=== PATIENT | female | born 1985 | race Caucasian/White ===

== ENCOUNTER 2018-11-09 14:59 | Emergency (ER) | payer OTHER ==
--- OUTSIDE RECORDS SUMMARY | 2018-11-09 15:08 | XMS REPORT | Continuity of Care Document ---
:1985 External Reference #:[id number] Author Name Inderjit Bush DO, MPH Address [address], [address] [place] [address] Care Team Providers Name Role Phone Shay Olivares J, DO Care Team Information Financial Manager Unavailable Jessica Johnson M.D. Primary Care Physician Unavailable Payers Date Identification Numbers Payment Provider Subscriber Policy Number: [id number] [facility] CLAYTON Pichardo PayID: [id number] [employer] [address] [place] [address] Family History Date Family Member(s) Observation Comments Father due to Unknown Causes () Mother 62 Children 3 Siblings None Social History Type Date Description Comments Sex Unknown Marital Status Lives With Spouse Lives With Children Occupation Unemployed Work Status Not Currently Working ETOH Use Denies alcohol use Tobacco Use Start: Unknown Patient is a current smoker, smokes every day Recreational Drug Use Denies Drug Use Smoking Status Reviewed: 10/23/18 Patient is a current smoker, smokes every day Allergies, Adverse Reactions, Alerts Active Allergies Reaction Severity Comments Date Morphine 03/22/2018 Medications Active Medications SIG Qnty Indications Ordering Provider Date Oxycodone HCL si by mouth 100tabs Inderjit Bush DO, 08/22/2018 5mg every 4 to 6 MPH Tablets hours as directed chronic pain patient Tizanidine HCL si by mouth 90tabs Inderjit Bush DO, 06/25/2018 4mg every 8 hours as MPH Tablets directed Gabapentin si by mouth 90tabs Inderjit Bush DO, 03/22/2018 600mg three times a day MPH Tablets as directed Doxepin HCL 4 by mouth every Unknown 25mg day before bed Capsules Hydroxyzine HCL si by mouth Unknown 25mg three times a day Tablets Propranolol HCL 1 by mouth twice Unknown 20mg daily Tablets History Medications Oxycodone HCL si by mouth 90tabs Inderjit Bush DO, 03/22/2018 - 5mg every 8 hours as MPH 08/22/2018 Tablets directed chronic pain patient Rizatriptan Benzoate 1-2 by mouth as Unknown - needed for 07/25/2018 10mg Tablets migraines Gabapentin si by mouth Unknown - 300mg three times a day 03/22/2018 Capsules as directed Vital Signs Date Vital Result Comment 10/23/2018 9:41am BP Systolic 128 mmHg BP Diastolic 76 mmHg Heart Rate 74 /min Respiratory Rate 20 /min Height 60 inches 5'0" Weight 190.00 lb Pain Level 6 Pain at this time. Pain Level With Medicine 5 on average with meds Pain Level Without Medicine 9 without meds BMI (Body Mass Index) 37.1 kg/m2 09/21/2018 9:48am BP Systolic 130 mmHg BP Diastolic 86 mmHg Heart Rate 84 /min Respiratory Rate 20 /min Height 60 inches 5'0" Weight 188.00 lb Pain Level 7 Pain at this time. Pain Level With Medicine 6 on average with meds Pain Level Without Medicine 9 without meds Pain Level After Procedure 2 BP Systolic Recheck 128 mmHg Pulse: 80 BP Diastolic Recheck 78 mmHg Pulse: 80 BMI (Body Mass Index) 36.7 kg/m2 08/22/2018 9:46am BP Systolic 132 mmHg BP Diastolic 84 mmHg Heart Rate 86 /min Respiratory Rate 20 /min Height 60 inches 5'0" Weight 186.00 lb Pain Level 7 Pain at this time. Pain Level With Medicine 6 on average with meds Pain Level Without Medicine 9 01/31 without meds BMI (Body Mass Index) 36.3 kg/m2 07/25/2018 9:36am BP Systolic 126 mmHg BP Diastolic 70 mmHg Heart Rate 74 /min Respiratory Rate 20 /min Height 60 inches 5'0" Weight 170.00 lb Pain Level 5 Pain at this time. Pain Level With Medicine 4 on average with meds Pain Level Without Medicine 9 01/01 with no medication Pain Level After Procedure 3 BP Systolic Recheck 130 mmHg Pulse: 88 BP Diastolic Recheck 82 mmHg Pulse: 88 BMI (Body Mass Index) 33.2 kg/m2 07/19/2018 10:15am BP Systolic 148 mmHg BP Diastolic 86 mmHg Heart Rate 88 /min Respiratory Rate 20 /min Height 60 inches 5'0" Weight 170.00 lb Pain Level 9 Pain at this time. Pain Level With Medicine 8 on average with meds Pain Level Without Medicine 10 01/31 without meds Pain Level After Procedure 2 BP Systolic Recheck 136 mmHg Pulse: 80 BP Diastolic Recheck 84 mmHg Pulse: 80 BMI (Body Mass Index) 33.2 kg/m2 06/25/2018 9:44am BP Systolic 128 mmHg BP Diastolic 78 mmHg Heart Rate 74 /min Respiratory Rate 20 /min Height 60 inches 5'0" Weight 171.00 lb Pain Level 6 Pain at this time. Pain Level With Medicine 5 on average with meds Pain Level Without Medicine 10 01/31 without meds BMI (Body Mass Index) 33.4 kg/m2 05/25/2018 10:22am BP Systolic 146 mmHg BP Diastolic 76 mmHg Heart Rate 78 /min Respiratory Rate 20 /min Height 60 inches 5'0" Weight 171.00 lb Pain Level 7 Pain at this time. Pain Level With Medicine 6 on average with meds Pain Level Without Medicine 10 01/31 without meds Pain Level After Procedure 5 BP Systolic Recheck 140 mmHg Pulse: 88 BP Diastolic Recheck 82 mmHg Pulse: 88 BMI (Body Mass Index) 33.4 kg/m2 05/03/2018 12:20pm BP Systolic 124 mmHg BP Diastolic 78 mmHg Heart Rate 74 /min Respiratory Rate 20 /min Height 60 inches 5'0" Weight 157.00 lb Pain Level 7 Pain at this time. Pain Level With Medicine 6 on average with meds Pain Level Without Medicine 10 01/31 without meds BMI (Body Mass Index) 30.7 kg/m2 04/05/2018 2:35pm BP Systolic 128 mmHg BP Diastolic 84 mmHg Heart Rate 80 /min Respiratory Rate 20 /min Height 60 inches 5'0" Weight 157.00 lb Pain Level 8 Pain at this time. Pain Level With Medicine 8 on average with meds Pain Level Without Medicine 10 01/31 without meds Pain Level After Procedure 6 BP Systolic Recheck 132 mmHg Pulse: 84 BP Diastolic Recheck 80 mmHg Pulse: 84 BMI (Body Mass Index) 30.7 kg/m2 03/22/2018 2:20pm BP Systolic 122 mmHg BP Diastolic 76 mmHg Heart Rate 74 /min Respiratory Rate 18 /min Height 60 inches 5'0" Weight 156.00 lb Pain Level 9 Pain at this time. Pain Level Without Medicine 10 01/31 without meds BMI (Body Mass Index) 30.5 kg/m2 Procedures Date Code Description Status 09/21/2018 57214 Therapeutic, Prophylactic Or Diagnostic Injection Subq/Im Completed 09/21/2018 32808 Injection For Nerve Block, Other Peripheral Nerve Or Completed Branch 09/21/201874304 Injection, Single Or Mutiple Trigger Points One Or Two Completed Muscles 09/21/201838925 Injection, Tendon Origin/Insertion Completed 09/21/201811886 Injection, Tendon Origin/Insertion Completed 09/21/201809721 Inject Tendon/Ligament Completed 09/21/201806177 Inject Tendon/Ligament Completed 09/21/201836860 Inject Tendon/Ligament Completed 09/21/201882017 Inject Tendon/Ligament Completed 08/22/2018 76021 Therapeutic, Prophylactic Or Diagnostic Injection Subq/Im Completed 07/25/201846714 Arthrocentesis/Aspiration/Inj Of Major Joint Or Bursa W/ Completed Ultra 07/25/2018 91597 Test Autonomic Nervous System, Cardiovagal Innervation Completed 07/25/2018 58283 Test Autonomic Nervous System, Sudomotor Completed 07/19/2018 71363 Injection For Nerve Block, Greater Occipital Nerve Completed 07/19/201801032 Injection, Single Or Mutiple Trigger Points One Or Two Completed Muscles 07/19/2018 71292 Inject Tendon/Ligament Completed 07/19/2018 66621 Inject Tendon/Ligament Completed 07/19/2018 70808 Inject Tendon/Ligament Completed 07/19/2018 22972 Inject Tendon/Ligament Completed 06/25/2018 57698 Therapeutic, Prophylactic Or Diagnostic Injection Subq/Im Completed 04/05/2018 39014 Arthrocentesis/Aspiration/Inj Of Major Joint Or Bursa W/ Completed Ultra Encounters Type Date Location Provider Dx Diagnosis Office Visit 09/21/2018 Main Office as Of Inderjit Bush DO, G89.21 Chronic pain due 9:45a 14 MPH to trauma M53.3 Sacrococcygeal disorders, not elsewhere classified M54.17 Radiculopathy, lumbosacral region M65.88 Other synovitis and tenosynovitis, other site M46.06 Spinal enthesopathy, lumbar region M79.18 Myalgia, other site R53.83 Other fatigue 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 Office Visit 08/22/2018 10:15a Main Office as Inderjit Bush G89.21 Chronic pain due Of 05/25/13 DO, MPH to trauma M53.3 Sacrococcygeal disorders, not elsewhere classified M25.551 Pain in right hip G90.3 Multi-system degeneration of the autonomic nervous system R53.83 Other fatigue 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 Office Visit 07/25/2018 10:00a Main Office as Inderjit Bush G89.21 Chronic pain due Of 05/25/13 DO, MPH to trauma M53.3 Sacrococcygeal disorders, not elsewhere classified M25.551 Pain in right hip 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 G90.3 Multi-system degeneration of the autonomic nervous system Office Visit 07/19/2018 10:15a Main Office as Inderjit Bush G89.21 Chronic pain due Of 05/25/13 DO, MPH to trauma M53.3 Sacrococcygeal disorders, not elsewhere classified M65.88 Other synovitis and tenosynovitis, other site M79.12 Myalgia of auxiliary muscles, head and neck M54.81 Occipital neuralgia Office Visit 06/25/2018 10:15a Main Office as Inderjit Bush G89.21 Chronic pain due Of 05/25/13 DO, MPH to trauma M51.26 Other intervertebral disc displacement, lumbar region M53.3 Sacrococcygeal disorders, not elsewhere classified M54.5 Low back pain 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 R53.83 Other fatigue Office Visit 05/25/2018 10:00a Main Office as Inderjit Bush G89.21 Chronic pain due Of 05/25/13 DO, MPH to trauma M51.26 Other intervertebral disc displacement, lumbar region M25.551 Pain in right hip M53.3 Sacrococcygeal disorders, not elsewhere classified 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 Office Visit 05/03/2018 12:15p Main Office as Inderjit Bush G89.21 Chronic pain due Of 05/25/13 DO, MPH to trauma M51.26 Other intervertebral disc displacement, lumbar region M25.551 Pain in right hip M53.3 Sacrococcygeal disorders, not elsewhere classified 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 Office Visit 04/05/2018 2:45p Main Office as Inderjit Bush G89.21 Chronic pain due Of 05/25/13 DO, MPH to trauma M51.26 Other intervertebral disc displacement, lumbar region M25.551 Pain in right hip M53.3 Sacrococcygeal disorders, not elsewhere classified 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 Office Visit 03/22/2018 1:45p Main Office as Inderjit Bush G89.21 Chronic pain due Of 05/25/13 DO, MPH to trauma M51.26 Other intervertebral disc displacement, lumbar region M54.17 Radiculopathy, lumbosacral region M43.16 Spondylolisthesis, lumbar region M62.830 Muscle spasm of back G43.909 Migraine, unsp, not intractable, without status migrainosus M25.551 Pain in right hip M25.552 Pain in left hip F17.210 Nicotine dependence, cigarettes, uncomplicated Z13.89 Encounter for screening for other disorder Z71.89 Other specified counseling Z79.891 FDC (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 Z71.3 Dietary counseling and surveillance Plan of Treatment Future Appointment(s):11/03/2018 9:45 am - Inderjit Bush DO MPH at Main Office as Of 05/25/1406 9:45 am - Inderjit Bush DO MPH at Main Office as Of 05/25/1406 - Inderjit Bush DO, MPHG89.21 Chronic pain due to traumaComments:Chronic. Symptoms and complaints discussed and reviewed today. No significant changes in physical findings. Continue current medical pain management.M54.17 Radiculopathy, lumbosacral regionComments:Chronic. Symptoms and complaints discussed and reviewed today. No changes in physical findings; patient is stable on current medical therapy.M53.3 Sacrococcygeal disorders, not elsewhere classifiedComments:Chronic. Symptoms and complaints discussed and reviewed today. Notable sacral somatic dysfunctions warranting OMT. Patient is stable and comfortable with current medical therapy.M65.88 Other synovitis and tenosynovitis, other siteComments:Chronic. Symptoms and complaints discussed and reviewed today. Physical findings reviewed and warrant intervention. Continue current medical pain management.M79.18 Myalgia, other siteComments: Chronic. Symptoms and complaints discussed and reviewed today.No changes in physical findings. Patient is stable and comfortable when current medical therapy is rendered.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New Labs: Urine Drug Screen, Ordered: 10/23/18Comments:Urine drug screen sample taken. Rapid Point of Care Cup was reviewed in office with patient. Will send out UDT Rapid to Quantitative lab for confirmation testing. Urine Drug Testing (UDT) was done today to monitor opiate use and to monitor possible use of illicit substances. I will discuss the results at the next appointment from the Quantitative lab.The following tests were ordered:6 AM, AMPH, OMEGA, RAFFI, BUP, CARIS, COCM, COT, ETG, FENT, MCSHSG, OPI, OXY, PCP, TAPEN, XTSY, ZOLP. A urine drug test (UDT) was ordered for this patient and collected on site today. Creatinine has been ordered as well for specimen validity, not for kidney function. Preliminary UDT results are not final and should not be used to determine patient care or plan of treatment. Initially a qualitative immunoassay screen will be done. Any inconsistent or positive findings will be further tested with a more comprehensive quantitative confirmation LCMS study. It is part of the treatment process of prescribing controlled substances and is considered standard of care.R53.83 Other fatigueComments:Symptoms and complaints discussed and reviewed today. No significant changes in physical findings. Continue current medical pain management. B12 injection administered after patient evaluated. 1ml IM for fatigue. (See Consent for injection-B12 document for lot number and expiration date.)AllComments:Continue current medical pain management; injection therapy, osteopathic manipulation, PT / modalities, and consults as needed to manage chronic pain.Non - opioid pain management discussed and optionsdiscussed.Side effects discussed; anticipatory guidance given. Patient clearly understand and agree with all medical treatments and suggestions. All medicines prescribed are adequate and appropriate for this patient's complaint of pain, medical history, physical, and personal goals.Goals of Treatment are to provide adequate and appropriate multidisciplinary medical pain management to increase/ maintain patient's quality of life and functionality while maintaining satisfactory side effect profile andminimizing senior living end-organ damage. Importance of regular nutrition throughout the day discussed.Activity as toleratedContinue with PCP
--- OUTSIDE RECORDS SUMMARY | 2018-11-09 15:08 | XMS REPORT | Continuity of Care Document ---
:1985 External Reference #:[id number] Author Name Inderjit Bush DO, MPH Address [facility] [place] [facility], [address] [place] [address] Care Team Providers Name Role Phone Shay Olivares J, DO Care Team Information Front Office Attendant Unavailable Jessica Johnson M.D. Primary Care Physician Unavailable Payers Date Identification Numbers Payment Provider Subscriber Policy Number: [id number] [facility] Coby Pichardo PayID: [id number] [employer] Claims Dept [address] [place] [address] Problems Active Problems Provider Date Solitary sacroiliitis Inderjit Bush DO, MPH Onset: 11/03/2018 Pain in left sacroiliac joint Inderjit Bush DO, MPH Onset: 11/03/2018 Somatic dysfunction of thoracic region Inderjit Bush DO, MPH Onset: 2018 Pain in thoracic spine Inderjit Bush DO, MPH Onset: 11/03/2018 Somatic dysfunction of lumbar region Inderjit Bush DO, MPH Onset: 11/03/2018 Low back pain Inderjit Bush DO, MPH Onset: 11/03/2018 Somatic dysfunction of sacroiliac joint Inderjit Bush DO, MPH Onset: 2018 Chronic pain due to injury Inderjit Bush DO, MPH Onset: 11/03/2018 Family History Date Family Member(s) Observation Comments [...] Use Denies Drug Use Smoking Status Reviewed: 11/03/18 Patient is a current smoker, smokes every [...] directed Vital Signs Date Vital Result Comment 11/03/2018 10:11am BP Systolic 128 mmHg BP Diastolic 84 mmHg Heart Rate 86 /min Respiratory Rate 20 /min Height 60 inches 5'0" Weight 192.00 lb Pain Level 7 Pain at this time. Pain Level With Medicine 7 on average with meds Pain Level Without Medicine 9 without meds Pain Level After Procedure 4 BP Systolic Recheck 132 mmHg Pulse: 88 BP Diastolic Recheck 86 mmHg Pulse: 88 BMI (Body Mass Index) 37.5 kg/m2 10/23/2018 9:41am BP Systolic 128 mmHg BP [...] 30.5 kg/m2 Procedures Date Code Description Status 10/23/2018 23078 Therapeutic, Prophylactic Or Diagnostic Injection Subq/Im Completed 09/21/2018 19506 Therapeutic, Prophylactic Or Diagnostic Injection Subq/Im Completed 09/21/2018 40016 Injection For Nerve Block, Other Peripheral Nerve Or Completed Branch 09/21/201803510 Injection, Single Or Mutiple Trigger Points One Or Two Completed Muscles 09/21/2018 Injection, Tendon Origin/Insertion Completed 09/21/201854184 Injection, Tendon Origin/Insertion Completed 09/21/201805986 Inject Tendon/Ligament Completed 09/21/201822543 Inject Tendon/Ligament Completed 09/21/201871723 Inject Tendon/Ligament Completed 09/21/201819885 Inject Tendon/Ligament Completed 08/22/2018 12168 Therapeutic, Prophylactic Or Diagnostic Injection Subq/Im Completed 07/25/201890599 Arthrocentesis/Aspiration/Inj Of Major Joint Or Bursa W/ Completed Ultra 07/25/2018 76098 Test Autonomic Nervous System, Cardiovagal Innervation Completed 07/25/2018 67116 Test Autonomic Nervous System, Sudomotor Completed 07/19/2018 71158 Injection For Nerve Block, Greater Occipital Nerve Completed 07/19/201844275 Injection, Single Or Mutiple Trigger Points One Or Two Completed Muscles 07/19/201896198 Inject Tendon/Ligament Completed 07/19/201841095 Inject Tendon/Ligament Completed 07/19/201885104 Inject Tendon/Ligament Completed 07/19/201867938 Inject Tendon/Ligament Completed 06/25/2018 52320 Therapeutic, Prophylactic Or Diagnostic Injection Subq/Im Completed 04/05/201845932 Arthrocentesis/Aspiration/Inj Of Major Joint Or Bursa W/ Completed Ultra Encounters Type Date Location Provider Dx Diagnosis Office Visit 10/23/2018 Main Office as Of Inderjit Bush DO, G89.21 Chronic pain due 9:45a 05/25/13 MPH to trauma M54.17 Radiculopathy, lumbosacral region M53.3 Sacrococcygeal disorders, not elsewhere classified M65.88 Other synovitis and tenosynovitis, other site M79.18 Myalgia, other site Z79.891 custodial (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 R53.83 Other fatigue Office Visit 09/21/2018 9:45a Main Office as Inderjit Bush G89.21 Chronic pain due Of 05/25/13 DO, MPH to trauma M53.3 Sacrococcygeal disorders, not elsewhere classified M54.17 Radiculopathy, lumbosacral region M65.88 Other synovitis and tenosynovitis, other site M46.06 Spinal enthesopathy, lumbar region M79.18 Myalgia, other site R53.83 Other fatigue Z79.891 custodial (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 Office Visit 08/22/2018 10:15a Main Office as Inderjit Bush G89.21 Chronic pain due Of 05/25/13 DO, MPH to trauma M53.3 Sacrococcygeal disorders, not elsewhere classified M25.551 Pain in right hip G90.3 Multi-system degeneration of the autonomic nervous system R53.83 Other fatigue 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 Office Visit 07/25/2018 10:00a Main Office as Inderjit Bush G89.21 Chronic pain due Of 05/25/13 DO, MPH to trauma M53.3 Sacrococcygeal disorders, not elsewhere classified M25.551 Pain in right hip Z79.891 custodial (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 G90.3 Multi-system [...] elsewhere classified M54.5 Low back pain Z79.891 custodial (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 R53.83 Other fatigue Office Visit 05/25/2018 10:00a Main Office as Inderjit Bush, G89.21 Chronic pain due Of 05/25/13 DO, MPH to trauma M51.26 Other intervertebral disc displacement, lumbar region M25.551 Pain in right hip M53.3 Sacrococcygeal disorders, not elsewhere classified 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 Office Visit 05/03/2018 12:15p Main Office as Inderjit Bush G89.21 Chronic pain due Of 2 DO, MPH to trauma M51.26 Other intervertebral disc displacement, lumbar region M25.551 Pain in right hip M53.3 Sacrococcygeal disorders, not elsewhere classified 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 Office Visit 04/05/2018 2:45p Main Office as Inderjit Bush G89.21 Chronic pain due Of 2/1/14 DO, MPH to trauma M51.26 Other intervertebral disc displacement, lumbar region M25.551 Pain in right hip M53.3 Sacrococcygeal disorders, not elsewhere classified Z79.891 custodial (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 Office Visit 03/22/2018 1:45p Main Office as Inderjit Bush, G89.21 Chronic pain due Of 05/25/13 DO, [...] other disorder Z71.89 Other specified counseling Z79.891 custodial (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 Z71.3 Dietary counseling and surveillance Plan of Treatment Future Appointment(s):11/10/2018 9:30 am - Inderjit Bush DO, MPH at Main Office as Of 05/25/1406 9:45 am - Inderjit Bush DO, MPH at Main Office as Of 05/25/1406 - Inderjit Bush DO, MPHG89.21 Chronic pain due to traumaComments:Chronic. Symptoms and complaints discussed and reviewed today. No significant changes in physical findings. Continue current medical pain management.M53.3 Sacrococcygeal disorders, not elsewhere classifiedComments: Chronic. Symptoms and complaints discussed and reviewed today. Notable sacral somatic dysfunctions warranting OMT. Patient is stable and comfortable with current medical therapy.M99.04 Segmental and somatic dysfunction of sacral regionComments:Chronic. Symptoms and complaints discussed and reviewed today. Sacral somatic dysfunctions noted warranting OMT. Continue current medical pain management and OMT. Sacral Torsion. OMT performed after evaluation. HVLA.M46.1 Sacroiliitis, not elsewhere classifiedComments:Symptoms and complaints discussed and reviewed today. Continue current medical pain management. Physical findings warrant injection therapy.Injection therapy to left SI joint performed today. Injection therapy performed today under musculoskeletal ultrasound for demarcation of pertinent structures and needle guidance for injection - see procedure sheet.M99.05 Segmental and somatic dysfunction of pelvic regionComments:Chronic. Symptoms and complaints discussed and reviewed today. Pelvic somatic dysfunctions noted warranting OMT. Continue current medical pain management and OMT. Pelvic Shear. OMT performed. MFR. HVLA.AllComments:Continue current medical pain management; injection therapy, osteopathic [...] while maintaining satisfactory side effect profile andminimizing nursing home end-organ damage. Importance of regular nutrition throughout the day discussed.Activity as toleratedContinue with PCP
[2018-11-09 15:58] VITALS: BP 122/83
--- NOTE | 2018-11-09 18:46 | UC ---
Complaint Female HPI - HPI Summary HPI Summary: 3 DAYS OF LEFT PELVIC PAIN. FEELS BETTER WITH HEAT. PATIENT IS 32 DAYS LATE FOR HER MENSTRUAL CYCLE BUT REPORTS THAT HER MENSES ARE EXTREMELY IRREGULAR AT BASELINE. SHE HAS GONE UP TO 90 DAYS WITHOUT HAVING A PERIOD. IS FOLLOWED BY [employer] UP WORKER. IS HAVING UNPROTECTED SEX WITH HER . NO FEVER. NO VAGINAL DISCHARGE. - History Of Current Complaint Chief Complaint: UCAbdominalPain Stated Complaint: PELVIC PAIN Time Seen by Provider: 11/09/18 16:39 Hx Obtained From: Patient Hx Last Menstrual Period: [id number] Onset/Duration: Gradual Onset, Lasting Days, Still Present Timing: Constant, Lasting Days Severity Initially: Mild Severity Currently: Mild Pain Intensity: 1 Pain Scale Used: 0-10 Numeric Character: Sharp, Cramping Aggravating Factor(s): Nothing Alleviating Factor(s): Nothing Associated Signs And Symptoms: Negative: Fever, Back Pain, Vaginal Bleeding/ Discharge, Vaginal Discharge, Nausea - Allergies/Home Medications Allergies/Adverse Reactions: Allergies Allergy/AdvReac Type Severity Reaction Status Date / Time morphine Allergy See Comment Verified 11/09/18 15:59 [email or web address] [From Chantix] Allergy Nausea Verified 11/09/18 15:59 Home Medications: Home Medications Albuterol HFA INHALER* [Ventolin HFA Inhaler*] 2 puff INH Q4H PRN 11/09/18 [ History Confirmed 11/09/18] Cetirizine* [ZyrTEC 10 MG TAB*] 10 mg PO DAILY 11/09/18 [History Confirmed 11/09] Fluticasone/Vilanterol MDI(NF) [Breo Ellipta MDI 100/25(NF)] 1 puff INH DAILY [History Confirmed 11/09/18] Gabapentin CAP(*) [Neurontin 300 CAP(*)] 600 mg PO TID 11/09/18 [History Confirmed 11/09/18] Propranolol TAB* [Inderal TAB*] 10 mg PO BID 11/09/18 [History Confirmed ] Tiotropium CAP.INH* [Spiriva CAP.INH*] 1 cap.inh INH BID 11/09/18 [History Confirmed 11/09/18] Tizanidine HCl [Zanaflex] 4 mg PO TID 11/09/18 [History Confirmed 11/09/18] PMH/Surg Hx/FS Hx/Imm Hx Psychological History: Anxiety, Depression, Bipolar Disorder, Post Traumatic Stress Disorder - Surgical History Surgical History: Yes Surgery Procedure, Year, and Place: Elbow reconstruction, 2000. lydia, 2008. c -sec X3 - Family History Known Family History: Positive: Non-Contributory - Social History Alcohol Use: Rare Substance Use Type: None Smoking Status (MU): Heavy Every Day Tobacco Smoker Review of Systems All Other Systems Reviewed And Are Negative: Yes Constitutional: Positive: Negative Skin: Positive: Negative Respiratory: Positive: Negative Cardiovascular: Positive: Negative Gastrointestinal: Positive: Negative Genitourinary: Positive: Other - LEFT PELVIC PAIN. Negative: Dysuria, Frequency , Urgency, Vaginal/Penile Discharge Physical Exam Triage Information Reviewed: Yes Appearance: Well-Appearing, No Pain Distress, Well-Nourished Vital Signs: Initial Vital Signs Temp 97.7 F 11/09/18 15:46 Pulse 77 11/09/18 15:46 Resp 16 11/09/18 15:46 BP 122/83 11/09/18 15:46 Pulse Ox 100 11/09/18 15:46 Laboratory Tests 11/09/18 11/09/18 18:01 18:04 POC Urine Color Yellow POC Urine Clarity Clear POC Urine pH 6.0 POC Ur Specif [place] 1.010 POC Urine Protein Negative POC Ur Glucose (UA) Negative POC Urine Ketones Negative POC Urine Blood Negative POC Urine Nitrite Negative POC Urine Bilirubin Negative POC Urine Urobilinogen 0.2 POC U Leukocyte Esteras Negative POC Ur Test Negative Vital Signs Reviewed: Yes Eyes: Positive: Conjunctiva Clear ENT: Positive: Hearing grossly normal Neck: Positive: Supple, Nontender, No Lymphadenopathy Respiratory: Positive: No respiratory distress, No accessory muscle use Cardiovascular: Positive: Pulses Normal Abdomen Description: Positive: Soft, Other: - LLQ TENDERNESS. NO RIGIDITY OR REBOUND. Negative: CVA Tenderness (R), CVA Tenderness (L), Distended, Guarding Bowel Sounds: Positive: Present Musculoskeletal: Positive: No Edema Neurological: Positive: Alert Psychological: Positive: Age Appropriate Behavior Skin: Negative: Rashes Diagnostics - Radiology PELVIC/TRANSVAGINAL US Radiology Interpretation Completed By: Radiologist Summary of Radiographic Findings: 1. Vascular flow documented at both normal size ovaries. 2. 1.6 cm maximum dimension probable partially involuted hemorrhagic cyst of the LEFT ovary. Very low suspicion finding given small size. 3. Negative for free pelvic fluid. Complaint Female Dx - Differential Dx/Diagnosis Provider Diagnosis: Hemorrhagic cyst of left ovary Discharge - Sign-Out/Discharge Documenting (check all that apply): Patient Departure All imaging exams completed and their final reports reviewed: Yes - Discharge Plan Condition: Stable Disposition: HOME Patient Education Materials: Ovarian Cyst (ED) Referrals: Jessica Johnson MD [Primary Care Provider] - If Needed Additional Instructions: ULTRASOUND TODAY SHOWED A HEMORRHAGIC CYST IN THE LEFT OVARY. THIS IS LIKELY WHAT IS CAUSING HER DISCOMFORT. OTC MEDICATIONS NEEDED. HEAT MAY HELP. FOLLOW-UP WITH YOUR [employer] UP WORKER IF NEEDED. URINE WAS NEGATIVE FOR INFECTION AND . - Billing Disposition and Condition Condition: STABLE Disposition: Home
== END 2018-11-09 18:57 | disposition home or self-care (01) ==
LOC: UCEAST 14:59
DX: N83.202 Unspecified ovarian cyst, left side (principal); F41.9 Anxiety disorder, unspecified; F32.9 Major depressive disorder, single episode, unspecified; F31.9 Bipolar disorder, unspecified; F17.210 Nicotine dependence, cigarettes, uncomplicated; Z88.5 Allergy status to narcotic agent
CPT/HCPCS: 76830; 76856; 81003; 84702; 99211; G0463

== ENCOUNTER 2019-03-31 12:09 | Emergency (ER) | payer OTHER ==
--- OUTSIDE RECORDS SUMMARY | 2019-03-31 12:14 | XMS REPORT | Continuity of Care Document ---
:1985 External Reference #:[id number] Author Name Inderjit Bush DO, MPH Address [address] [place] [address], [address] [place] [address] Care Team Providers Name Role Phone Shay Olivares J, DO - Internal Medicine Care Team Information Director Clinical Information Services [phone] Jessica Johnson M.D. - Internal Care Team Information Director Clinical Information Services Medicine Problems Active Problems Provider Date Myalgia, other site Inderjit Bush DO, MPH Onset: 03/02/2019 Synovitis and tenosynovitis Inderjit Bush DO, MPH Onset: 03/02/2019 Somatic dysfunction of pelvic region Inderjit Bush DO, MPH Onset: 03/02/2019 Arthralgia of the pelvic region and thigh Inderjit Bush DO, MPH Onset: 2018 Solitary sacroiliitis Inderjit Bush DO, MPH Onset: [...] injury Inderjit Bush DO, MPH Onset: 11/03/2018 Social History Type Date Description Comments Sex Unknown ETOH Use Denies alcohol use Tobacco Use Start: Unknown Patient is a current smoker, smokes every day Recreational Drug Use Denies Drug Use Smoking Status Reviewed: 03/02/19 Patient is a current smoker, smokes every day Allergies, Adverse Reactions, Alerts Active Allergies Reaction Severity Comments Date Morphine 03/22/2018 Medications Active Medications SIG Qnty Indications Ordering Date Provider Oxycodone HCL si by mouth 100tabs Inderjit Bush, 08/22/2018 5mg Tablets every 4 to 6 DO, MPH hours as directed chronic pain patient Tizanidine HCL si by mouth 90tabs Inderjit Bush, 06/25/2018 4mg every 8 hours as DO, MPH Tablets directed Gabapentin si by mouth 90tabs Inderjit Bush, 03/22/2018 600mg Tablets three times a DO, MPH day as directed Doxepin HCL 4 by mouth every Unknown 25mg Capsules day before bed Hydroxyzine HCL si by mouth Unknown 25mg three times a Tablets day Propranolol HCL 1 by mouth Unknown 20mg twice daily Tablets Levothyroxine Sodium 1 by mouth every Unknown day 25mcg Tablets Aimovig Unknown 70mg/ml Solution Auto-Inject Zyrtec Allergy Unknown 10mg Tablets Loratadine si by mouth Unknown 10mg Tablets every morning Albuterol Inhalation Unknown 90mcg/Dose Aerosol Spiriva Handihaler Unknown 18mcg Capsules Breo Ellipta Unknown 100-25mcg/Inh Aerosol Immunizations Description No Information Available Vital Signs Date Vital Result Comment 03/02/2019 10:08am BP Systolic 128 mmHg BP Diastolic 80 mmHg Heart Rate 74 /min Respiratory Rate 20 /min Height 60 inches 5'0" Weight 192.00 lb Pain Level 5 Pain at this time. Pain Level With Medicine 5 on average with meds Pain Level Without Medicine 9 without meds Pain Level After Procedure 3 BP Systolic Recheck 126 mmHg Pulse: 74 BP Diastolic Recheck 72 mmHg Pulse: 74 BMI (Body Mass Index) 37.5 kg/m2 02/21/2019 9:30am BP Systolic 128 mmHg BP Diastolic 84 mmHg Heart Rate 86 /min Respiratory Rate 20 /min Height 60 inches 5'0" Weight 192.00 lb Pain Level 6 Pain at this time. Pain Level With Medicine 5 on average with meds Pain Level Without Medicine 9 without meds BMI (Body Mass Index) 37.5 kg/m2 Results Description No Information Available Procedures Date Code Description Status 03/02/2019 06951 Omt 3-4 Body Regions Completed 03/02/2019 Arthrocentesis/Aspiration/Inj Of Major Joint Or Bursa W/ Completed Ultra 03/02/2019 Arthrocentesis/Aspiration/Inj Of Major Joint Or Bursa W/ Completed Ultra 03/02/2019 Injection, Single Or Mutiple Trigger Points One Or Two Completed Muscles 03/02/201908792 Inject Tendon/Ligament Completed 03/02/201909024 Inject Tendon/Ligament Completed 02/21/2019 53337 Therapeutic, Prophylactic Or Diagnostic Injection Subq/Im Completed 01/01/201942403 Inject Tendon/Ligament Completed 01/01/201989281 Inject Tendon/Ligament Completed 01/01/201937084 Inject Tendon/Ligament Completed 01/01/201964522 Inject Tendon/Ligament Completed 01/01/201929994 Injection, Tendon Origin/Insertion Completed 01/01/201955200 Injection, Tendon Origin/Insertion Completed 01/01/201965318 Injection, Single Or Mutiple Trigger Points One Or Two Completed Muscles 01/01/2019 92279 Injection For Nerve Block, Other Peripheral Nerve Or Completed Branch 01/01/2019 63172 Omt 5-6 Body Regions Completed 12/20/2018 94676 Therapeutic, Prophylactic Or Diagnostic Injection Subq/Im Completed 11/21/2018 00655 Therapeutic, Prophylactic Or Diagnostic Injection Subq/Im Completed 11/03/2018 97549 Omt 1-2 Body Regions Completed 11/03/201875883 Arthrocentesis/Aspiration/Inj Of Major Joint Or Bursa W/ Completed Ultra 10/23/2018 97924 Therapeutic, Prophylactic Or Diagnostic Injection Subq/Im Completed 09/21/2018 21915 Therapeutic, Prophylactic Or Diagnostic Injection Subq/Im Completed 09/21/2018 66717 Injection For Nerve Block, Other Peripheral Nerve Or Completed Branch 09/21/201871229 Injection, Single Or Mutiple Trigger Points One Or Two Completed Muscles 09/21/201808581 Injection, Tendon Origin/Insertion Completed 09/21/2018 97567 Injection, Tendon Origin/Insertion Completed 09/21/2018 Inject Tendon/Ligament Completed 09/21/2018 Inject Tendon/Ligament Completed 09/21/201850522 Inject Tendon/Ligament Completed 09/21/2018 Inject Tendon/Ligament Completed Medical Devices Description No Information Available Encounters Type Date Location Provider Dx Diagnosis Office Visit 03/02/2019 Main Office as Of Inderjit Bush DO G89.21 Chronic pain due 10:15a 05/25/13 MPH to trauma M46.1 Sacroiliitis, not elsewhere classified M99.03 Segmental and somatic dysfunction of lumbar region M53.3 Sacrococcygeal disorders, not elsewhere classified M99.04 Segmental and somatic dysfunction of sacral region M25.552 Pain in left hip M25.551 Pain in right hip M99.05 Segmental and somatic dysfunction of pelvic region M65.88 Other synovitis and tenosynovitis, other site M79.18 Myalgia, other site Office Visit 02/21/2019 10:00a Main Office as Inderjit Bush G89.21 Chronic pain due Of 05/25/13 DO, MPH to trauma M54.2 Cervicalgia M54.6 Pain in thoracic spine M54.5 Low back pain M79.18 Myalgia, other site Z79.891 [facility] (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 R53.83 Other fatigue Office Visit 01/21/2019 10:00a Main Office as Inderjit Bush G89.21 Chronic pain due Of 05/25/13 DO, MPH to trauma M54.2 Cervicalgia M54.6 Pain in thoracic spine M54.5 Low back pain M54.17 Radiculopathy, lumbosacral region M79.18 Myalgia, other site 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 R53.83 Other fatigue Office Visit 01/01/2019 10:15a Main Office as Inderjit Bush G89.21 Chronic pain due Of 05/25/13 DO, MPH to trauma M54.2 Cervicalgia M99.01 Segmental and somatic dysfunction of cervical region M54.6 Pain in thoracic spine M99.02 Segmental and somatic dysfunction of thoracic region M54.5 Low back pain M99.03 Segmental and somatic dysfunction of lumbar region M54.17 Radiculopathy, lumbosacral region M65.88 Other synovitis and tenosynovitis, other site M79.18 Myalgia, other site M53.3 Sacrococcygeal disorders, not elsewhere classified 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 M99.04 Segmental and somatic dysfunction of sacral region M25.551 Pain in right hip M25.552 Pain in left hip M99.05 Segmental and somatic dysfunction of pelvic region Office Visit 12/20/2018 10:15a Main Office as Inderjit Bush, G89.21 Chronic pain due Of 2/05/07 DO, MPH to trauma M54.17 Radiculopathy, lumbosacral region M54.5 Low back pain M46.1 Sacroiliitis, not elsewhere classified 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 R53.83 Other fatigue Office Visit 11/21/2018 9:45a Main Office as Inderjit Bush G89.21 Chronic pain due Of 2 DO, MPH to trauma M46.1 Sacroiliitis, not elsewhere classified M54.17 Radiculopathy, lumbosacral region 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 R53.83 Other fatigue Office Visit 11/03/2018 9:45a Main Office as Inderjit Bush, G89.21 Chronic pain due Of 2/05/07 DO, MPH to trauma M53.3 Sacrococcygeal disorders, not elsewhere classified M99.04 Segmental and somatic dysfunction of sacral region M46.1 Sacroiliitis, not elsewhere classified M99.05 Segmental and somatic dysfunction of pelvic region Office Visit 10/23/2018 9:45a Main Office as Inderjit Bush, G89.21 Chronic pain due Of 2/14 DO, MPH to trauma M54.17 Radiculopathy, lumbosacral region M53.3 Sacrococcygeal disorders, not elsewhere classified M65.88 Other synovitis and tenosynovitis, other site M79.18 Myalgia, other site Z79.891 [facility] (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 R53.83 Other fatigue Office Visit 09/21/2018 9:45a Main Office as Inderjit Bush G89.21 Chronic pain due Of 05/25/13 , MPH to trauma M53.3 Sacrococcygeal disorders, not elsewhere classified M54.17 Radiculopathy, lumbosacral region M65.88 Other synovitis and tenosynovitis, other site M46.06 Spinal enthesopathy, lumbar region M79.18 Myalgia, other site R53.83 Other fatigue Z79.891 [facility] (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 Assessments Date Code Description Provider 03/02/2019 G89.21 Chronic pain due to trauma BushInderjit mendoza DO, MPH 03/02/2019 M46.1 Sacroiliitis, not elsewhere classified BushInderjit mendoza, DO, MPH 03/02/2019 M99.03 Segmental and somatic dysfunction of lumbar UbshInderjit mendoza, DO, MPH region 03/02/2019 M53.3 Sacrococcygeal disorders, not elsewhere Bush, Inderjit, DO, MPH classified 03/02/2019 M99.04 Segmental and somatic dysfunction of sacral BushInderjit alanis, DO, MPH region 03/02/2019 M25.552 Pain in left hip BushInderjit mendoza DO, MPH 03/02/2019 M25.551 Pain in right hip Bush, Inderjit, DO, MPH 03/02/2019 M99.05 Segmental and somatic dysfunction of pelvic Bush, Inderjit, DO, MPH region 03/02/2019 M65.88 Other synovitis and tenosynovitis, other Bush, Inderjit, DO , MPH site 03/02/2019 M79.18 Myalgia, other site BushMatthew mendozaph, DO, MPH 02/21/2019 G89.21 Chronic pain due to trauma BushInderjit mendoza DO, MPH 02/21/2019 M54.2 Cervicalgia BushInderjit mendoza, DO, MPH 02/21/2019 M54.6 Pain in thoracic spine Bush, Inderijt, DO, MPH 02/21/2019 M54.5 Low back pain BushMatthew mendozaph, DO, MPH 02/21/2019 M79.18 Myalgia, other site Bush, Inderjit, DO, MPH 02/21/2019 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 Bush, Inderjit , DO, MPH 02/21/2019 R53.83 Other fatigue Bush, Inderjit, DO, MPH 01/21/2019 G89.21 Chronic pain due to trauma Bush, Inderjit, DO, MPH 01/21/2019 M54.2 Cervicalgia Bush, Inderjit, DO, MPH 01/21/2019 M54.6 Pain in thoracic spine Bush, Inderjit, DO, MPH 01/21/2019 M54.5 Low back pain Bush, Inderjit, DO, MPH 01/21/2019 M54.17 Radiculopathy, lumbosacral region Bush, Inderjit, DO, MPH 01/21/2019 M79.18 Myalgia, other site Bush, Inderjit, DO, MPH 01/21/2019 Z79.891 [facility] (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 Bush, Inderjit , DO, MPH 01/21/2019 R53.83 Other fatigue Bush, Inderjit, DO, MPH 01/01/2019 G89.21 Chronic pain due to trauma Bush, Inderjit, DO, MPH 01/01/2019 M54.2 Cervicalgia Bush, Inderjit, DO, MPH 01/01/2019 M99.01 Segmental and somatic dysfunction of Bush, Inderjit, DO, MPH cervical region 01/01/2019 M54.6 Pain in thoracic spine Bush, Inderjit, DO, MPH 01/01/2019 M99.02 Segmental and somatic dysfunction of Bush, Inderjit, DO, MPH thoracic region 01/01/2019 M54.5 Low back pain Bush, Inderjit, DO, MPH 01/01/2019 M99.03 Segmental and somatic dysfunction of lumbar Bush, Inderjit, DO, MPH region 01/01/2019 M54.17 Radiculopathy, lumbosacral region Bush, Inderjit, DO, MPH 01/01/2019 M65.88 Other synovitis and tenosynovitis, other Bush, Inderjit, DO , MPH site 01/01/2019 M79.18 Myalgia, other site Bush, Inderjit, DO, MPH 01/01/2019 M53.3 Sacrococcygeal disorders, not elsewhere Bush, Inderjit, DO, MPH classified 01/01/2019 Z79.891 [facility] (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 Bush, Inderjit , DO, MPH 01/01/2019 M99.04 Segmental and somatic dysfunction of sacral Bush, Inderjit, DO, MPH region 01/01/2019 M25.551 Pain in right hip Bush, Inderjit, DO, MPH 01/01/2019 M25.552 Pain in left hip Bush, Inderjit, DO, MPH 01/01/2019 M99.05 Segmental and somatic dysfunction of pelvic Bush, Inderjit, DO, MPH region 12/20/2018 G89.21 Chronic pain due to trauma Bush, Inderjit, DO, MPH 12/20/2018 M54.17 Radiculopathy, lumbosacral region Bush, Inderjit, DO, MPH 12/20/2018 M54.5 Low back pain Bush, Inderjit, DO, MPH 12/20/2018 M46.1 Sacroiliitis, not elsewhere classified Bush, Inderjit, DO, MPH 12/20/2018 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 Bush, Inderjit , DO, MPH 12/20/2018 R53.83 Other fatigue Bush, Inderjit, DO, MPH 11/21/2018 G89.21 Chronic pain due to trauma Bush, Inderjit, DO, MPH 11/21/2018 M46.1 Sacroiliitis, not elsewhere classified Bush, Inderjit, DO, MPH 11/21/2018 M54.17 Radiculopathy, lumbosacral region Bush, Inderjit, DO, MPH 11/21/2018 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 Bush, Inderjit , DO, MPH 11/21/2018 R53.83 Other fatigue Bush, Inderjit, DO, MPH 11/03/2018 G89.21 Chronic pain due to trauma Bush, Inderjit, DO, MPH 11/03/2018 M53.3 Sacrococcygeal disorders, not elsewhere Bush, Inderjit, DO, MPH classified 11/03/2018 M99.04 Segmental and somatic dysfunction of sacral Bush, Inderjit, DO, MPH region 11/03/2018 M46.1 Sacroiliitis, not elsewhere classified Bush, Inderjit, DO, MPH 11/03/2018 M99.05 Segmental and somatic dysfunction of pelvic Bush, Inderjit, DO, MPH region 10/23/2018 G89.21 Chronic pain due to trauma Bush, Inderjit, DO, MPH 10/23/2018 M54.17 Radiculopathy, lumbosacral region Bush, Inderjit, DO, MPH 10/23/2018 M53.3 Sacrococcygeal disorders, not elsewhere Bush, Inderjit, DO, MPH classified 10/23/2018 M65.88 Other synovitis and tenosynovitis, other Bush, Inderjit, DO , MPH site 10/23/2018 M79.18 Myalgia, other site Bush, Inderjit, DO, MPH 10/23/2018 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 Bush, Inderjit , DO, MPH 10/23/2018 R53.83 Other fatigue Bush, Inderjit, DO, MPH 09/21/2018 G89.21 Chronic pain due to trauma Bush, Inderjit, DO, MPH 09/21/2018 M53.3 Sacrococcygeal disorders, not elsewhere Bush, Inderjit, DO, MPH classified 09/21/2018 M54.17 Radiculopathy, lumbosacral region Bush, Inderjit, DO, MPH 09/21/2018 M65.88 Other synovitis and tenosynovitis, other Bush, Inderjit, DO , MPH site 09/21/2018 M46.06 Spinal enthesopathy, lumbar region Bush, Inderjit, DO, MPH 09/21/2018 M79.18 Myalgia, other site Bush, Inderjit, DO, MPH 09/21/2018 R53.83 Other fatigue Bush, Inderjit, DO, MPH 09/21/2018 Z79.891 [facility] (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 Bush, Inderjit , DO, MPH Plan of Treatment Future Appointment(s):03/20/2019 10:15 am - Inderjit Bush DO, MPH at Main Office as Of 05/25/1410 - Inderjit Bush DO, MPHG89.21 Chronic pain due to traumaComments:Chronic. Symptoms and complaints discussed and reviewed today. No significant changes in physical findings. Continue current medical pain management.M46.1 Sacroiliitis, not elsewhere classifiedComments:Symptoms and complaints discussed and reviewed today. Continue current medical pain management. Physical findings warrant injection therapy.Injection therapy to left SI joint performed today. Injection therapy performed today under musculoskeletal ultrasound for demarcation of pertinent structures and needle guidance for injection - see procedure sheet.M99.03 Segmental and somatic dysfunction of lumbar regionComments:Chronic. Symptoms and complaints discussed and reviewed today. Lumbar somatic dysfunctions noted warranting OMT. Continue current medical pain management and OMT. [id number]. OMT performed after evaluation. HVLA.M53.3 Sacrococcygeal disorders, not elsewhere classifiedComments:Chronic. Symptoms and complaints discussed and reviewed today. Notable physical findings warranting injections. Patient is stable and comfortable with current medical therapy.M99.04 Segmental and somatic dysfunction of sacral regionComments:Chronic. Symptoms and complaints discussed and reviewed today. Sacral somatic dysfunctions noted warranting OMT. Continue current medical pain management and OMT. Sacral Torsion. OMT performed after evaluation. HVLA.M25.552 Pain in left hipComments:Chronic. Symptoms and complaints discussed and reviewed today. No significant changes in physical findings. Continue current medical pain management.M25.551 Pain in right hipComments:Chronic. Symptoms and complaints discussed and reviewed today. No significant changes in physical findings. Continue current medical pain management.M99.05 Segmental and somatic dysfunction of pelvic regionComments: Chronic. Symptoms and complaints discussed and reviewed today. Pelvic somatic dysfunctions noted warranting OMT. Continue current medical pain management and OMT. Pelvic Shear. OMT performed. MFR. HVLA.M65.88 Other synovitis and tenosynovitis, other siteComments:Chronic. Symptoms and complaints discussed and reviewed today. Physical findings reviewed and warrant intervention. Continue current medical pain management. Injection therapy today - tendon sheath. Informed consent given/refusal reviewed. See procedure sheet.M79.18 Myalgia, other siteComments:Injection therapy today - Trigger Point injections. Informed consent given/refusal reviewed. See procedure sheet. Symptoms and complaints discussed and reviewed today. Physical findings warrant interventional/injection therapy. 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 Importance of regular nutrition throughout the day discussed.Activity as toleratedContinue with PCP Functional Status Description No Information Available Mental Status Description No Information Available Referrals Refer to Reason for Referral Status Appt Date Inderjit Bush D.O. MPH Created [address] [place] [address] [place] [phone] Inderjit Bush D.O. MPH Created [address] [place] [address] [address] [place] [phone] Inderjit Bush D.O. MPH Created [address] [place] [phone]
--- OUTSIDE RECORDS SUMMARY | 2019-03-31 12:14 | XMS REPORT | Continuity of Care Document ---
:1985 External Reference #:[id number] Author Name SAMSON Sargent (transmitted by agent of provider Cristhian Collins) Address [address] [place] [address] Care Team Providers Name Role Phone Jessica Johnson MD - Family Care Team Information Medical Assistant Per Diem [phone] Medicine Problems Active Problems Provider Date Allergic rhinitis due to pollen Cristhian Collins MD Onset: 06/01/2018 Allergic rhinitis Cristhian Collins MD Onset: 06/01/2018 Uncomplicated moderate persistent asthma Cristhian Collins MD Onset: 11/2018 Viremia Cristhian Collins MD Onset: 06/01/2018 Social History Type Date Description Comments Sex Unknown Tobacco Use Start: Unknown Heavy tobacco smoker (more than 10 cigarettes/day) Smoking Status Reviewed: 03/25/19 Heavy tobacco smoker (more than 10 cigarettes/day) Allergies, Adverse Reactions, Alerts Active Allergies Reaction Severity Comments Date Morphine Emotional 06/01/2018 Medications Active Medications SIG Qnty Indications Ordering Provider Date Cetirizine HCL Take One Tablet By 30tabs Cristhian Santacruz 12/12/2018 Mouth Every Day as MD Dennis 10mg Tablets Needed Spiriva Respimat 2 inhalations once 4gm Enoc Hardy, 07/18/2018 daily RPA-C 2.5mcg/Act Aerosol Fluticasone spray 2 sprays in 16gm J30.1 Cristhian Santacruz 06/04/2018 Propionate each nostril daily MD Dennis 50mcg/Act Suspension Zyrtec Allergy one tablet po 30tabs J30.1 Cristhian Santacruz 06/01/2018 daily prn MD Dennis 10mg Tablets Breo Ellipta inhale one puff by 60units J30.1 Cristhian Santacruz 06/01/2018 mouth every day MD Dennis 200-25mcg/Inh Aerosol Proair HFA 2 puffs every 4 as 8.500gm J30.1 Christopher A. 06/01/2018 needed MD Dennis 108(90Base) mcg/Act Aerosol Ventolin HFA inhale 2 puffs by 8gm J30.89 Christopher A. 06/01/2018 inhalation route MD Dennis 108(90Base) every 4 hours as mcg/Act Aerosol needed Oxycodone HCL Unknown 5mg Tablets Gabapentin Unknown 600mg Tablets Hydroxyzine HCL Shay Olivares DO 25mg Tablets Loratadine take 1 tab by 30caps Betzy Vasquez NP 10mg mouth daily. Capsules Propranolol HCL Unknown Aimovig Unknown 70mg/ml Solution Auto-Inject Medications Administered in Office Medication SIG Qnty Indications Ordering Provider Date Allergy Injection 2 Or More Cristhian Collins MD 12/31/2018 Injection Allergy Injection 2 Or More Cristhian Collins MD 11/19/2018 Injection Allergy Injection 2 Or More Cristhian Collins MD 11/14/2018 Injection Allergy Injection 2 Or More Cristhian Collins MD 10/31/2018 Injection Allergy Injection 2 Or More Cristhian Collins MD 10/19/2018 Injection Allergy Injection 2 Or More Cristhian Collins MD 10/10/2018 Injection Allergy Injection 2 Or More Cristhian Collins MD 10/05/2018 Injection Allergy Injection 2 Or More Cristhian Collins MD 09/26/2018 Injection Allergy Injection 2 Or More Cristhian Collins MD 09/12/2018 Injection Allergy Injection 2 Or More Cristhian Collins MD 08/15/2018 Injection Allergy Injection 2 Or More Cristhian Collins MD 07/25/2018 Injection Allergy Injection 2 Or More Cristhian Collins MD 07/18/2018 Injection Immunizations Description No Information Available Vital Signs Date Vital Result Comment 03/25/2019 1:55pm BP Systolic 95 mmHg BP Diastolic 64 mmHg Height 61 inches 5'1" Weight 173.00 lb BMI (Body Mass Index) 32.7 kg/m2 Heart Rate 84 /min Respiratory Rate 18 /min O2 % BldC Oximetry 98 % 06/20/2018 11:00am BP Systolic 110 mmHg BP Diastolic 80 mmHg Height 61 inches 5'1" Weight 173.00 lb BMI (Body Mass Index) 32.7 kg/m2 Respiratory Rate 18 /min Results Test Acquired Date Facility Test Result H/L Range Note Order 03/25/2019 [facility] Nitric Oxide <pending> PFT Supplies <pending> PFT With Bronchodilator <pending> Procedures Date Code Description Status 03/25/2019 03106 Nitric Oxide Gas Determination Completed 03/25/2019 62796 Bronchodilation Responsiveness Spirometry Pre/Post Completed Bronchodil Adm 12/31/2018 74781 Allergy Injection 2 Or More Completed 11/19/2018 74803 Allergy Injection 2 Or More Completed 11/14/2018 72723 Allergy Injection 2 Or More Completed 10/31/2018 59790 Allergy Injection 2 Or More Completed 10/19/2018 77085 Allergy Injection 2 Or More Completed 10/10/2018 84173 Allergy Injection 2 Or More Completed 10/05/2018 60057 Allergy Injection 2 Or More Completed 09/26/2018 01629 Allergy Injection 2 Or More Completed Medical Devices Description No Information Available Encounters Type Date Location Provider Dx Diagnosis Office Visit 03/25/2019 [place] SAMSON Sargent J45.40 Moderate persistent 2:00p asthma, uncomplicated J30.1 Allergic rhinitis due to pollen J30.89 Other allergic rhinitis Assessments Date Code Description Provider 03/25/2019 J45.40 Moderate persistent asthma, uncomplicated SAMSON Sargent 03/25/2019 J30.1 Allergic rhinitis due to pollen SAMSON Sargent 03/25/2019 J30.89 Other allergic rhinitis SAMSON Sargent 12/31/2018 J45.40 Moderate persistent asthma, uncomplicated Cristhian Collins MD 12/31/2018 J30.1 Allergic rhinitis due to pollen Cristhian Collins MD 12/31/2018 J30.89 Other allergic rhinitis Cristhian Collins MD 11/19/2018 J45.40 Moderate persistent asthma, uncomplicated Cristhian Collins MD 11/19/2018 J30.1 Allergic rhinitis due to pollen Cristhian Collins MD 11/19/2018 J30.89 Other allergic rhinitis Cristhian Collins MD 11/14/2018 J45.40 Moderate persistent asthma, uncomplicated Cristhian Collins MD 11/14/2018 J30.1 Allergic rhinitis due to pollen Cristhian Collins MD 11/14/2018 J30.89 Other allergic rhinitis Cristhian Collins MD 10/31/2018 J45.40 Moderate persistent asthma, uncomplicated Cristhian Collins MD 10/31/2018 J30.1 Allergic rhinitis due to pollen Cristhian Collins MD 10/31/2018 J30.89 Other allergic rhinitis Cristhian Collins MD 10/19/2018 J45.40 Moderate persistent asthma, uncomplicated Cristhian Collins MD 10/19/2018 J30.1 Allergic rhinitis due to pollen Cristhian Collins MD 10/19/2018 J30.89 Other allergic rhinitis Cristhian Collins MD 10/10/2018 J45.40 Moderate persistent asthma, uncomplicated Cristhian Collins MD 10/10/2018 J30.1 Allergic rhinitis due to pollen Cristhian Collins MD 10/10/2018 J30.89 Other allergic rhinitis Cristhian Collins MD 10/05/2018 J45.40 Moderate persistent asthma, uncomplicated Cristhian Collins MD 10/05/2018 J30.1 Allergic rhinitis due to pollen Cristhian Collins MD 10/05/2018 J30.89 Other allergic rhinitis Cristhian Collins MD 09/26/2018 J45.40 Moderate persistent asthma, uncomplicated Cristhian Collins MD 09/26/2018 J30.1 Allergic rhinitis due to pollen Cristhian Collins MD 09/26/2018 J30.89 Other allergic rhinitis Cristhian Collins MD Plan of Treatment Future Appointment(s):09/27/2019 10:30 am - Betzy Vasquez NP at [id number] - SAMSON SargentJ45.40 Moderate persistent asthma, uncomplicatedComments: Patient's PFT is within normal limits and exhaled nitric oxide is normal at 6 ppb. Patient to continue Breo for prophylaxis of her lungs and Ventolin for breakthrough chest symptoms. Patient to continue Flonase for prophylaxis of her nose and cetirizine for breakthrough nasal symptoms. Patient to continue Spiriva, as prescribed, for additional prophylaxis of her lungs. Saline nasal rinse and HEPAair filter may help decrease allergens. Warm salt water gargles may help decrease postnasal drip. Patient strongly encouraged to start the process of cigarette smoking cessation. Patient to discussallergy immunotherapy injections at a later date.Follow up:6 months, PFT and NIOX [id number] Allergic rhinitis due to jemzuaD61.89 Other allergic rhinitis Functional Status Description No Information Available Mental Status Description No Information Available Referrals Description No Information Available
--- OUTSIDE RECORDS SUMMARY | 2019-03-31 12:15 | XMS REPORT | Continuity of Care Document ---
:1985 External Reference #:[id number] Author Name Inderjit Bush DO, MPH Address [address] [place] [address], [address] [place] [address] Care Team Providers Name Role Phone Shay Olivares J, DO - Internal Medicine Care Team Information Customer Service Operator [phone] Jessica Johnson M.D. - Internal Care Team Information Customer Service Operator [phone] Medicine Problems Active Problems Provider Date Solitary sacroiliitis Inderjit Bush DO, MPH Onset: 11/03/2018 Pain in left sacroiliac joint Inderjit Bush DO, MPH Onset: 11/03/2018 Somatic dysfunction of thoracic region Inderjit Bush DO MPH Onset: 2018 Pain in thoracic spine Inderjit Bush DO MPH Onset: 11/03/2018 Somatic dysfunction of lumbar region Inderjit Bush DO MPH Onset: 11/03/2018 Low back pain Inderjit Bush DO MPH Onset: 11/03/2018 Somatic dysfunction of sacroiliac joint Inderjit Bush DO MPH Onset: 2018 Chronic pain due to injury Inderjit Bush DO MPH Onset: 11/03/2018 Social History Type Date Description Comments Sex Unknown ETOH Use Denies alcohol use Tobacco Use Start: Unknown Patient is a current smoker, smokes every day Recreational Drug Use Denies Drug Use Smoking Status Reviewed: 01/21/19 Patient is a current smoker, smokes every [...] Available Vital Signs Date Vital Result Comment 02/21/2019 9:30am BP Systolic 128 mmHg BP Diastolic 84 mmHg Heart Rate 86 /min Respiratory Rate 20 /min Height 60 inches 5'0" Weight 192.00 lb Pain Level 6 Pain at this time. Pain Level With Medicine 5 on average with meds Pain Level Without Medicine 9 without meds BMI (Body Mass Index) 37.5 kg/m2 01/21/2019 9:27am BP Systolic 132 mmHg BP Diastolic 84 mmHg Heart Rate 88 /min Respiratory Rate 20 /min Height 60 inches 5'0" Weight 196.00 lb Pain Level 4 Pain at this time. Pain Level With Medicine 4 on average with meds Pain Level Without Medicine 9 without meds BMI (Body Mass Index) 38.3 kg/m2 Results Description No Information Available Procedures Date Code Description Status 01/01/2019 58071 Omt 5-6 Body Regions Completed 01/01/2019 93034 Injection For Nerve Block, Other Peripheral Nerve Or Completed Branch 01/01/2019 15889 Injection, Single Or Mutiple Trigger Points One Or Two Completed Muscles 01/01/201972332 Injection, Tendon Origin/Insertion Completed 01/01/201901910 Injection, Tendon Origin/Insertion Completed 01/01/201929664 Inject Tendon/Ligament Completed 01/01/201913599 Inject Tendon/Ligament Completed 01/01/201938945 Inject Tendon/Ligament Completed 01/01/201902247 Inject Tendon/Ligament Completed 12/20/2018 41131 Therapeutic, Prophylactic Or Diagnostic Injection Subq/Im Completed 11/21/2018 48289 Therapeutic, Prophylactic Or Diagnostic Injection Subq/Im Completed 11/03/201829084 Arthrocentesis/Aspiration/Inj Of Major Joint Or Bursa W/ Completed Ultra 11/03/2018 79871 Omt 1-2 Body Regions Completed 10/23/2018 71522 Therapeutic, Prophylactic Or Diagnostic Injection Subq/Im Completed 09/21/2018 47148 Therapeutic, Prophylactic Or Diagnostic Injection Subq/Im Completed 09/21/2018 55826 Injection For Nerve Block, Other Peripheral Nerve Or Completed Branch 09/21/201840368 Injection, Single Or Mutiple Trigger Points One Or Two Completed Muscles 09/21/201845350 Injection, Tendon Origin/Insertion Completed 09/21/201818943 Injection, Tendon Origin/Insertion Completed 09/21/201806376 Inject Tendon/Ligament Completed 09/21/201843011 Inject Tendon/Ligament Completed 09/21/201813162 Inject Tendon/Ligament Completed 09/21/201849100 Inject Tendon/Ligament Completed Medical Devices Description No Information Available Encounters Type Date Location Provider Dx Diagnosis Office Visit 01/21/2019 Main Office as Of Inderjit Bush DO G89.21 Chronic pain due 10:00a 05/25/13 MPH to trauma M54.2 Cervicalgia M54.6 Pain in thoracic spine M54.5 Low back pain M54.17 Radiculopathy, lumbosacral region M79.18 Myalgia, other site 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 R53.83 Other fatigue Office Visit 01/01/2019 10:15a Main Office as Inderjit Bush G89.21 Chronic pain due Of 05/25/13 , MPH to trauma M54.2 Cervicalgia M99.01 Segmental [...] 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 M99.04 Segmental and somatic dysfunction of sacral region M25.551 Pain in right hip M25.552 Pain in left hip M99.05 Segmental and somatic dysfunction of pelvic region Office Visit 12/20/2018 10:15a Main Office as Inderjit Bush, G89.21 Chronic pain due Of 05/25/13 DO, MPH to trauma M54.17 Radiculopathy, lumbosacral region M54.5 Low back pain M46.1 Sacroiliitis, not elsewhere classified Z79.891 [facility] (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 R53.83 Other fatigue Office Visit 11/21/2018 9:45a Main Office as Inderjit Bush G89.21 Chronic pain due Of 05/25/13 DO, MPH to trauma M46.1 Sacroiliitis, not elsewhere classified M54.17 Radiculopathy, lumbosacral region Z79.891 [facility] (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 R53.83 Other fatigue Office Visit 11/03/2018 9:45a Main Office as Inderjit Bush G89.21 Chronic pain due Of 05/25/13 DO, MPH to trauma M53.3 Sacrococcygeal disorders, not elsewhere classified M99.04 Segmental and somatic dysfunction of sacral region M46.1 Sacroiliitis, not elsewhere classified M99.05 Segmental and somatic dysfunction of pelvic region Office Visit 10/23/2018 9:45a Main Office as Inderjit Bush G89.21 Chronic pain due Of 05/25/13 DO, MPH to trauma M54.17 Radiculopathy, lumbosacral region M53.3 Sacrococcygeal disorders, not elsewhere classified M65.88 Other synovitis and tenosynovitis, other site M79.18 Myalgia, other site Z79.891 [facility] (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 R53.83 Other fatigue Office Visit 09/21/2018 9:45a Main Office as BushInderjit mendoza, G89.21 Chronic pain due Of 05/25/13 DO, MPH to trauma M53.3 Sacrococcygeal disorders, not elsewhere classified M54.17 Radiculopathy, lumbosacral region M65.88 Other synovitis and tenosynovitis, other site M46.06 Spinal enthesopathy, lumbar region M79.18 Myalgia, other site R53.83 Other fatigue Z79.891 [facility] (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 Assessments Date Code Description Provider 02/21/2019 G89.21 Chronic pain due to trauma Bush, Inderjit, DO, MPH 02/21/2019 M54.2 Cervicalgia Bush, Inderjit, DO, MPH 02/21/2019 M54.6 Pain in thoracic spine Bush, Inderjit, DO, MPH 02/21/2019 M54.5 Low back pain Bush, Inderjit, DO, MPH 02/21/2019 M79.18 Myalgia, other site Bush, Inderjit, DO, MPH 02/21/2019 Z79.891 [facility] (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 Bush, Inderjit [...] site Bush, Inderjit, DO, MPH 01/21/2019 Z79.891 [facility] (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 Bush, Inderjit [...] Bush, Inderjit, DO, MPH classified 01/01/2019 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 Bush, Inderjit [...] classified Bush, Inderjit, DO, MPH 12/20/2018 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 Bush, Inderjit , DO, MPH 12/20/2018 R53.83 Other fatigue Bush, Inderjit, DO, MPH 11/21/2018 G89.21 Chronic pain due to trauma Bush, Inderjit, DO, MPH 11/21/2018 M46.1 Sacroiliitis, not elsewhere classified Bush, Inderjit, DO, MPH 11/21/2018 M54.17 Radiculopathy, lumbosacral region Bush, Inderjit, DO, MPH 11/21/2018 Z79.891 [facility] (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 Bush, Inderjit [...] site Bush, Inderjit, DO, MPH 10/23/2018 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 Bush, Inderjit , DO, MPH 10/23/2018 R53.83 Other fatigue Bush, Inderjit, DO, MPH 09/21/2018 G89.21 Chronic pain due to trauma Inderjit Bush DO MPH 09/21/2018 M53.3 Sacrococcygeal disorders, not elsewhere Inderjit Bush DO MPH classified 09/21/2018 M54.17 Radiculopathy, lumbosacral region Inderjit Bush DO MPH 09/21/2018 M65.88 Other synovitis and tenosynovitis, other Inderjit Bush DO MPH site 09/21/2018 M46.06 Spinal enthesopathy, lumbar region Inderjit Bush DO MPH 09/21/2018 M79.18 Myalgia, other site Inderjit Bush DO MPH 09/21/2018 R53.83 Other fatigue Inderjit Bush DO MPH 09/21/2018 Z79.891 [facility] (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 Inderjit Bush DO MPH Plan of Treatment Future Appointment(s):03/20/2019 10:15 am - Inderjit Bush DO MPH at Main Office as Of 05/25/1410 10:15 am - Inderjit Bush DO MPH at Main Office as Of 05/25/1409 - Inderjit Bush DO MPHG89.21 Chronic pain due to traumaComments:Chronic. Symptoms and complaints discussed and reviewed today. No significant changes in physical findings. Continue current medical pain management.M54.2 CervicalgiaComments:Chronic. Symptoms and complaints discussed and reviewed today. No significant changes in physical findings. Continue current medical pain management.M54.6 Pain in thoracic spineComments: Chronic.Symptoms and complaints discussed and reviewed today. No significant changes in physical findings. Continue current medical pain management.M54.5 Low back painComments:Chronic. Symptoms and complaints discussed and reviewed today.No changes in physical findings. Patient is stable and comfortable when current medical therapy is rendered.M79.18 Myalgia, other siteComments:Chronic. Symptoms and complaints discussed and reviewed today.No changes in physical findings. Patient is stable and comfortable when current medical therapy is rendered.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New Labs:Urine Drug Screen, Ordered: 02/21/19Comments:Urine drug screen sample taken. Rapid Point of [...] AM, AMPH, OMEGA, RAFFI, BUP, CARIS, COCM, ETG, FENT, MCSHSG, OPI, OXY, PCP, TAPEN, XTSY, ZOLP. A urine drug test ( UDT) was ordered for this patient and collected [...] number and expiration date.)AllComments:Continue current medical pain management ; injection therapy, osteopathic manipulation, PT / modalities, [...] while maintaining satisfactory side effect profile andminimizing 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 end-organ damage. Importance of regular nutrition throughout the day discussed.Activity as toleratedContinue with PCP Functional Status Description No Information Available Mental Status Description No Information Available Referrals Refer to Reason for Referral Status Appt Date Inderjit Bush D.O. MPH Created [address] [place] [address] [phone] Inderjit Bush D.O. MPH Created [address] [place] [address] [address] [place] [id number] [phone]
[2019-03-31 12:32] VITALS: BP 151/100
--- NOTE | 2019-03-31 12:57 | UC ---
Throat Pain/Nasal Gurpreet HPI - HPI Summary HPI Summary: 33 yo woman with hx of asthma and COPD, with 4 week history of nasal congestion , sore throat, and persistent sinus pain for the past months. Has had subjective fever, chills and sweats for the past week. - History of Current Complaint Chief Complaint: UCGeneralIllness Stated Complaint: SINUS ISSUE Time Seen by Provider: 03/31/19 12:47 Hx Obtained From: Patient Hx Last Menstrual Period: 01/22 Onset/Duration: Gradual Onset, Lasting Weeks Severity: Moderate Pain Intensity: 4 Cough: Nonproductive Associated Signs & Symptoms: Positive: Sinus Discomfort, Nasal Discharge, Fever - Epiglottits Risk Factors Epiglottis Risk Factors: Negative - Allergies/Home Medications Allergies/Adverse Reactions: Allergies Allergy/AdvReac Type Severity Reaction Status Date / Time morphine Allergy See Comment Verified 03/31/19 12:32 varenicline [From Chantix] Allergy Nausea Verified 03/31/19 12:32 Home Medications: Home Medications Erenumab-Aooe [Aimovig Autoinjector] 70 mg SQ MONTHLY 03/31/19 [History Confirmed 03/31/19] Oxycodone HCl 5 mg PO TID 03/31/19 [History Confirmed 03/31/19] PMH/Surg Hx/FS Hx/Imm Hx Respiratory History: COPD, Asthma Neurological History: Migraine - Surgical History Surgical History: Yes Surgery Procedure, Year, and Place: Elbow reconstruction, 2000. lydia, 2007. 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 Negative: Shortness Of Breath, Cough Cardiovascular: Positive: Negative Gastrointestinal: Positive: Negative Genitourinary: Positive: Urgency - hx of urinary urgency for some months. Has follow up pending with Dr. Wolf for re-evaluation--has had a referral. Motor: Positive: Negative Neurovascular: Positive: Negative Musculoskeletal: Positive: Negative Neurological: Positive: Headache Psychological: Positive: Negative Is Patient Immunocompromised?: No Physical Exam Triage Information Reviewed: Yes Appearance: No Pain Distress, Ill-Appearing Vital Signs: Initial Vital Signs Temp 97.2 F 03/31/19 12:26 Pulse 96 03/31/19 12:26 Resp 18 03/31/19 12:26 BP 151/100 03/31/19 12:26 Pulse Ox 99 03/31/19 12:26 Eyes: Positive: Conjunctiva Clear ENT: Positive: Pharyngeal erythema, TMs normal, Tonsillar swelling. Negative: Tonsillar exudate Dental Exam: Normal Neck: Positive: Supple, Nontender, No Lymphadenopathy Respiratory: Positive: Lungs clear, Normal breath sounds Cardiovascular: Positive: RRR, No Murmur Musculoskeletal Exam: Normal Neurological Exam: Normal Psychological Exam: Normal Skin Exam: Normal Throat Pain/Nasal Course/Dx - Course Course Of Treatment: augmentin for treatment of sinusitis. - Differential Dx/Diagnosis Differential Diagnosis/HQI/PQRI: Pharyngitis, Sinusitis, Tonsillitis Provider Diagnosis: Sinusitis Discharge ED - Sign-Out/Discharge Documenting (check all that apply): Patient Departure All imaging exams completed and their final reports reviewed: No Studies - Discharge Plan Condition: Stable Disposition: HOME Prescriptions: Amoxicillin/Clavulanate TAB* [Augmentin TAB 875*] 875 mg PO BID #20 tab Patient Education Materials: Sinusitis (ED) Referrals: Jessica Johnson MD [Primary Care Provider] - Additional Instructions: Please take full course of antibiotic to treat sinus infection. Continue use of albuterol and Breo, as well as nasal rinses. - Billing Disposition and Condition Condition: STABLE Disposition: Home
== END 2019-03-31 13:08 | disposition home or self-care (01) ==
LOC: UCEAST 12:09
DX: J32.9 Chronic sinusitis, unspecified (principal); J02.9 Acute pharyngitis, unspecified; J44.9 Chronic obstructive pulmonary disease, unspecified; F17.290 Nicotine dependence, other tobacco product, uncomplicated; Z88.5 Allergy status to narcotic agent; Z88.8 Allergy status to other drugs, medicaments and biological substances
CPT/HCPCS: 99212; G0463

== ENCOUNTER 2019-04-25 19:09 | Emergency (ER) | payer OTHER ==
--- OUTSIDE RECORDS SUMMARY | 2019-04-25 19:16 | XMS REPORT | Continuity of Care Document ---
:1985 External Reference #:[id number] Author Name Cristhian Marlow M.D. (transmitted by agent of provider Kathy Jeffrey) Address [address], [place] [address] Care Team Providers Name Role Phone Jessica Johnson MD - Family Care Team Information Coding Manager Medicine Problems Active Problems Provider Date Chronic intractable migraine without aura Cristhian Marlow M.D. Onset: 04/19 Social History Type Date Description Comments Sex Unknown ETOH Use Rarely consumes alcohol Tobacco Use Start: Unknown Patient is a current smoker, smokes every day Smoking Status Reviewed: 04/19/19 Patient is a current smoker, smokes every day Exercise Type/Frequency Exercises sporadically Allergies, Adverse Reactions, Alerts Active Allergies Reaction Severity Comments Date Morphine 07/12/2018 Medications Active Medications SIG Qnty Indications Ordering Provider Date Aimovig inject with one 140 1ml G43.719 Cristhian Marlow, 04/19/2019 140mg/ml mg auto-inject Glendy mock Solution Auto-Inject subcutaneous injection once a month Doxepin HCL 1 by mouth at at Unknown 25mg bedtime Capsules Gabapentin 2 caps by mouth Unknown 300mg three times daily Capsules Hydroxyzine HCL 1 by mouth every 8 Unknown 10mg hours as needed Tablets Loratadine 1 cap by mouth Unknown 10mg daily Capsules Rizatriptan Benzoate 1 by mouth at onset Unknown of migraine, august 10mg Tablets Dispers repeat after 2 hours max 2/day Tizanidine HCL 1 tab by mouth Unknown 4mg three times a day Capsules Oxycodone HCL 1 - 2 tabs by mouth Unknown 5mg every 12 hours as Capsules needed pain Levothyroxine Sodium Take 1 Tablet By Unknown Mouth Daily Before 25mcg Tablets Breakfast Fluticasone [place] Two Sprays In Unknown Propionate Each Nostril Every 50mcg/Act Day Suspension Breo Ellipta Inhale One puff By Unknown Mouth Every Day 200-25mcg/Inh Aerosol History Medications Aimovig 1 injection 1ml G43.719 Torin Rhodes, 01/14/2019 - 140mg/ml monthly N.P. 04/19/2019 Solution Auto-Inject Immunizations Description No Information Available Vital Signs Date Vital Result Comment 04/19/2019 10:44am Height 60 inches 5'0" Weight 185.00 lb Heart Rate 108 /min BP Systolic 128 mmHg BP Diastolic 86 mmHg BMI (Body Mass Index) 36.1 kg/m2 01/14/2019 10:08am Height 60 inches 5'0" Weight 194.38 lb Heart Rate 94 /min BP Systolic 122 mmHg BP Diastolic 82 mmHg BMI (Body Mass Index) 38.0 kg/m2 Results Test Acquired Date Facility Test Result H/L Range Note Laboratory test 02/13/2019 [facility] HCG 3.54 mIU/mL 1 finding [address] [place] [address] [phone] 1 <5.0 Negative 5.0 - 25.0 Indeterminate (Repeat testing recommended after 72 hours) >25.0 Positive Perimenopausal women can display HCG levels of up to 20 mIU/mL Procedures Description No Information Available Medical Devices Description No Information Available Encounters Type Date Location Provider Dx Diagnosis Office Visit 01/14/2019 [facility] Torin Rhodes, G43.719 Chronic migraine 10:00a [facility] w/o aura, intractable, w/o stat migr Assessments Date Code Description Provider 04/19/2019 G43.719 Chronic migraine without aura, intractableCristhian M.D. without status migrainosus 01/14/2019 G43.719 Chronic migraine without aura, intractable, Torin Rhodes N.PGeraldo without status migrainosus Plan of Treatment Future Appointment(s):08/30/2019 3:45 pm - Cristhian Marlow M.D. at [facility]04/19/2019 - Cristhian Marlow M.D.G43.719 Chronic migraine without aura, intractable, without status migrainosusNew Medication: Aimovig 140 mg/ml - inject with one 140 mg auto-inject pen, subcutaneous injection once a monthFollow up:Follow up in 3 months Functional Status Description No Information Available Mental Status Description No Information Available Referrals Description No Information Available
--- OUTSIDE RECORDS SUMMARY | 2019-04-25 19:16 | XMS REPORT | Continuity of Care Document ---
:1985 External Reference #:[id number] Author Name Inderjit Bush DO, MPH Address [address] [place] [address], [address] [place] [address] Care Team Providers Name Role Phone Shay Olivares J, DO - Internal Medicine Care Team Information Certified Medical Technician Assistant [phone] Jessica Johnson M.D. - Internal Care Team Information Certified Medical Technician Assistant Medicine Problems Active Problems Provider Date Myalgia, [...] Use Denies Drug Use Smoking Status Reviewed: 04/22/19 Patient is a current smoker, smokes every [...] every Unknown day 25mcg Tablets Aimovig Unknown 140mg/ml Solution Auto-Inject Zyrtec Allergy Unknown 10mg Tablets Loratadine si by mouth Unknown 10mg Tablets every morning Albuterol Inhalation Unknown 90mcg/Dose Aerosol Spiriva Handihaler Unknown 18mcg Capsules Breo Ellipta Unknown 100-25mcg/Inh Aerosol Immunizations Description No Information Available Vital Signs Date Vital Result Comment 04/22/2019 9:44am BP Systolic 126 mmHg BP Diastolic 72 mmHg Heart Rate 74 /min Respiratory Rate 20 /min Height 60 inches 5'0" Weight 184.00 lb Pain Level 5 Pain at this time. Pain Level With Medicine 4 on average with meds Pain Level Without Medicine 9 without meds BMI (Body Mass Index) 35.9 kg/m2 03/20/2019 9:58am BP Systolic 128 mmHg BP Diastolic 78 mmHg Heart Rate 74 /min Respiratory Rate 20 /min Height 60 inches 5'0" Weight 192.00 lb Pain Level 8 Pain at this time. Pain Level With Medicine 7 on average with meds Pain Level Without Medicine 9 without meds BMI (Body Mass Index) 37.5 kg/m2 Results Description No Information Available Procedures Date Code Description Status 03/20/2019 35417 Therapeutic, Prophylactic Or Diagnostic Injection Subq/Im Completed 03/02/2019 43423 Omt 3-4 Body Regions Completed 03/02/2019 Arthrocentesis/Aspiration/Inj Of Major Joint Or Bursa W/ Completed Ultra 03/02/2019 Arthrocentesis/Aspiration/Inj Of Major Joint Or Bursa W/ Completed Ultra 03/02/201965258 Injection, Single Or Mutiple Trigger Points One Or Two Completed Muscles 03/02/201911579 Inject Tendon/Ligament Completed 03/02/201924766 Inject Tendon/Ligament Completed 02/21/2019 46969 Therapeutic, Prophylactic Or Diagnostic Injection Subq/Im Completed 01/01/201980640 Inject Tendon/Ligament Completed 01/01/201959183 Inject Tendon/Ligament Completed 01/01/201931212 Inject Tendon/Ligament Completed 01/01/201967961 Inject Tendon/Ligament Completed 01/01/2019 45662 Injection, Tendon Origin/Insertion Completed 01/01/2019 40076 Injection, Tendon Origin/Insertion Completed 01/01/201943265 Injection, Single Or Mutiple Trigger Points One Or Two Completed Muscles 01/01/2019 97737 Injection For Nerve Block, Other Peripheral Nerve Or Completed Branch 01/01/2019 99377 Omt 5-6 Body Regions Completed 12/20/2018 76909 Therapeutic, Prophylactic Or Diagnostic Injection Subq/Im Completed 11/21/2018 53116 Therapeutic, Prophylactic Or Diagnostic Injection Subq/Im Completed 11/03/2018 73889 Omt 1-2 Body Regions Completed 11/03/201829058 Arthrocentesis/Aspiration/Inj Of Major Joint Or Bursa W/ Completed Ultra 10/23/2018 70573 Therapeutic, Prophylactic Or Diagnostic Injection Subq/Im Completed Medical Devices Description No Information Available Encounters Type Date Location Provider Dx Diagnosis Office Visit 03/20/2019 Main Office as Of Inderjit Bush DO, G89.21 Chronic pain due 10:15a 14 MPH to trauma M46.1 Sacroiliitis, not elsewhere classified M25.552 Pain in left hip M25.551 Pain in right hip M54.2 Cervicalgia M79.604 Pain in right leg R53.83 Other fatigue 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 Office Visit 03/02/2019 10:15a Main Office as Inderjit Bush G89.21 Chronic pain due Of 2/05/07 DO, MPH to trauma M46.1 Sacroiliitis, not [...] Inderjit Bush G89.21 Chronic pain due Of 2/05/07 DO, MPH to trauma M54.2 Cervicalgia M54.6 Pain in thoracic spine M54.5 Low back pain M79.18 Myalgia, other site 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 R53.83 Other fatigue Office Visit 01/21/2019 10:00a Main Office as Inderjit Bush G89.21 Chronic pain due Of 2/05/07 DO, MPH to trauma M54.2 Cervicalgia M54.6 Pain in thoracic spine M54.5 Low back pain M54.17 Radiculopathy, lumbosacral region M79.18 Myalgia, other site 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 R53.83 Other fatigue Office Visit 01/01/2019 10:15a Main Office as Inderjit Bush G89.21 Chronic pain due Of 2//14 DO, MPH to trauma M54.2 Cervicalgia M99.01 Segmental and somatic dysfunction of cervical region M54.6 Pain in thoracic spine M99.02 Segmental and somatic dysfunction of thoracic region M54.5 Low back pain M99.03 Segmental and somatic dysfunction of lumbar region M54.17 Radiculopathy, lumbosacral region M65.88 Other synovitis and tenosynovitis, other site M79.18 Myalgia, other site M53.3 Sacrococcygeal disorders, not elsewhere classified 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 M99.04 Segmental and somatic dysfunction of sacral region M25.551 Pain in right hip M25.552 Pain in left hip M99.05 Segmental and somatic dysfunction of pelvic region Office Visit 12/20/2018 10:15a Main Office as Inderjit Bush G89.21 Chronic pain due Of 05/25/13 DO, MPH to trauma M54.17 Radiculopathy, lumbosacral region M54.5 Low back pain M46.1 Sacroiliitis, not elsewhere classified 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 R53.83 Other fatigue Office Visit 11/21/2018 9:45a Main Office as Inderjit Bush G89.21 Chronic pain due Of 05/25/13 DO, MPH to trauma M46.1 Sacroiliitis, not elsewhere classified M54.17 Radiculopathy, lumbosacral region 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 R53.83 Other [...] other site M79.18 Myalgia, other site 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 R53.83 Other fatigue Assessments Date Code Description Provider 04/22/2019 G89.21 Chronic pain due to trauma Inderjit Bush DO, MPH 04/22/2019 M54.2 Cervicalgia Inderjit Bush DO, MPH 04/22/2019 M79.604 Pain in right leg Bush, Inderjit, DO, MPH 04/22/2019 M25.551 Pain in right hip Bush, Inderjit, DO, MPH 04/22/2019 M25.552 Pain in left hip Bush, Inderjit, DO, MPH 04/22/2019 M46.1 Sacroiliitis, not elsewhere classified Bush, Inderjit, DO, MPH 04/22/2019 R53.83 Other fatigue Bush, Inderjit, DO, MPH 04/22/2019 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 Bush, Inderjit , DO, MPH 03/20/2019 G89.21 Chronic pain due to trauma Bush, Inderjit, DO, MPH 03/20/2019 M46.1 Sacroiliitis, not elsewhere classified Bush, Inderjit, DO, MPH 03/20/2019 M25.552 Pain in left hip Bush, Inderjit, DO, MPH 03/20/2019 M25.551 Pain in right hip Bush, Inderjit, DO, MPH 03/20/2019 M54.2 Cervicalgia Bush, Inderjit, DO, MPH 03/20/2019 M79.604 Pain in right leg Bush, Inderjit, DO, MPH 03/20/2019 R53.83 Other fatigue Bush, Inderjit, DO, MPH 03/20/2019 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 Bush, Inderjit , DO, MPH 03/02/2019 G89.21 Chronic pain due to trauma Bush, Inderjit, DO, MPH 03/02/2019 M46.1 Sacroiliitis, not elsewhere classified Bush, Inderjit, DO, MPH 03/02/2019 M99.03 Segmental and somatic dysfunction of lumbar Bush, Inderjit, DO, MPH region 03/02/2019 M53.3 Sacrococcygeal disorders, not elsewhere Bush, Inderjit, DO, MPH classified 03/02/2019 M99.04 Segmental and somatic dysfunction of sacral Bush, Inderjit, DO, MPH region 03/02/2019 M25.552 Pain in left hip Bush, Inderjit, DO, MPH 03/02/2019 M25.551 Pain in right hip Bush, Inderjit, DO, MPH 03/02/2019 M99.05 Segmental and somatic dysfunction of pelvic Bush, Niderjit, DO, [facility] region 03/02/2019 M65.88 Other synovitis and tenosynovitis, other Bush, Inderjit, DO , MPH site 03/02/2019 M79.18 Myalgia, other site Bush, Inderjit, DO, MPH 02/21/2019 G89.21 Chronic pain due to trauma Bush, Inderjit, DO, MPH 02/21/2019 M54.2 Cervicalgia Bush, Inderjit, DO, MPH 02/21/2019 M54.6 Pain in thoracic spine Bush, Inderjit, DO, MPH 02/21/2019 M54.5 Low back pain Bush, Inderjit, DO, MPH 02/21/2019 M79.18 Myalgia, other site Bush, Inderjit, DO, MPH 02/21/2019 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 Bush, Inderjit [...] site Bush, Inderjit, DO, MPH 01/21/2019 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 Bush, Inderjit [...] Bush, Inderjit, DO, MPH classified 01/01/2019 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 Bush, Inderjit [...] classified Bush, Inderjit, DO, MPH 12/20/2018 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 Bush, Inderjit , DO, MPH 12/20/2018 R53.83 Other fatigue Bush, Inderjit, DO, MPH 11/21/2018 G89.21 Chronic pain due to trauma Bush, Inderjit, DO, MPH 11/21/2018 M46.1 Sacroiliitis, not elsewhere classified Bush, Inderjit, DO, MPH 11/21/2018 M54.17 Radiculopathy, lumbosacral region Bush, Inderjit, DO, MPH 11/21/2018 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 Symptoms and complaints discussed and reviewed today. No significant changes in physical findings. Continue current medical pain management.M54.2 CervicalgiaComments:Chronic. Symptoms and complaints discussed and reviewed today. No significant changes in physical findings. Continue current medical pain management.M79.604 Pain in right legComments:Chronic. Symptoms and complaints discussed and reviewed today. No significant changes in physical findings. Continue current medical pain management.M25.551 Pain in right hipComments:Chronic. Symptoms and complaints discussed and reviewed today. No significant changes in physical findings. Continue current medical pain management.M25.552 Pain in left hipComments:Chronic. Symptoms and complaints discussed and reviewed today. No significant changes in physical findings. Continue current medical pain management.M46.1 Sacroiliitis, not elsewhere classifiedComments:Chronic. Symptoms and complaints discussed and reviewed today. No significant changes in physical findings. Continue current medical pain management.R53.83 Other fatigueComments:Symptoms and complaints discussed and reviewed today. No significant changes in physical findings. Continue current medical pain management. B12 injection administered after patient evaluated. 1ml IM for fatigue. (See Consent for injection-B12 document for lot number and expiration date.)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New Labs:Urine Drug Screen, Ordered: 04/22/19Comments:Urine drug screen sample taken. 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 Importance of regular nutrition throughout the day discussed.Activity as toleratedContinue with PCP Functional Status Description No Information Available Mental Status Description No Information Available Referrals Refer to Dr Reason for Referral Status Appt Date Inderjit Bush D.O. MPH Created [address] [place] [address] [place] [address] [phone] Inderjit Bush D.O. MPH Created [address] [place] [address] [address] [place] [address] [phone]
[2019-04-25 19:26] VITALS: BP 145/104
--- NOTE | 2019-04-25 20:06 | UC ---
Respiratory Complaint HPI - HPI Summary HPI Summary: 34-year-old woman comes in with chief complaint of 2 weeks of upper respiratory tract infection symptoms. Patient had sinusitis symptoms was treated with Augmentin which the sinusitis symptoms improved however it moved into her chest and she's having wheezing cough chest congestion or shortness of breath. She does have a history of asthma and she's been using her inhaler overall she's getting worse. - History of Current Complaint Chief Complaint: UCRespiratory Stated Complaint: COLD SYMPTOMS Time Seen by Provider: 04/25/19 19:46 Hx Last Menstrual Period: 03/31/19 Pain Intensity: 5 - Allergies/Home Medications Allergies/Adverse Reactions: Allergies Allergy/AdvReac Type Severity Reaction Status Date / Time morphine Allergy See Comment Verified 04/25/19 19:26 varenicline [From Chantix] Allergy Nausea Verified 04/25/19 19:26 PMH/Surg Hx/FS Hx/Imm Hx Previously Healthy: Yes Respiratory History: Asthma - Surgical History Surgical History: Yes Surgery Procedure, Year, and Place: Elbow reconstruction, 2000. lydia, 2008. c -sec X3 - Family History Known Family History: Positive: Non-Contributory - Social History Alcohol Use: Rare Substance Use Type: None Substance Use Comment - Amount & Last Used: oxy Smoking Status (MU): Heavy Every Day Tobacco Smoker Review of Systems All Other Systems Reviewed And Are Negative: Yes Constitutional: Positive: Other - SEE HPI Skin: Positive: Negative Eyes: Positive: Negative ENT: Positive: Sore Throat, Nasal Discharge, Sinus Congestion Respiratory: Positive: Shortness Of Breath, Cough, Other - SEE HPI Cardiovascular: Positive: Negative Gastrointestinal: Positive: Negative Motor: Positive: Negative Neurovascular: Positive: Negative Musculoskeletal: Positive: Negative Neurological: Positive: Negative Psychological: Positive: Negative Is Patient Immunocompromised?: No Physical Exam Triage Information Reviewed: Yes Appearance: No Pain Distress, Well-Nourished, Ill-Appearing - MILD Vital Signs: Initial Vital Signs Temp 97.2 F 04/25/19 19:19 Pulse 95 04/25/19 19:19 Resp 16 04/25/19 19:19 BP 145/104 04/25/19 19:19 Pulse Ox 98 04/25/19 19:19 Vital Signs Reviewed: Yes Eye Exam: Normal Eyes: Positive: Conjunctiva Clear ENT: Positive: Pharyngeal erythema, Nasal congestion, Nasal drainage, TMs normal Neck: Positive: Supple Respiratory: Positive: No respiratory distress, Rhonchi, Wheezing Cardiovascular: Positive: RRR Musculoskeletal: Positive: Strength Intact, ROM Intact Neurological: Positive: Alert, Muscle Tone Normal Psychological: Positive: Normal Response To Family, Age Appropriate Behavior Skin Exam: Normal Respiratory Course/Dx - Differential Dx/Diagnosis Provider Diagnosis: Bronchitis, Asthma exacerbation Discharge ED - Sign-Out/Discharge Documenting (check all that apply): Patient Departure All imaging exams completed and their final reports reviewed: No Studies - Discharge Plan Condition: Stable Disposition: HOME Prescriptions: Albuterol 2.5MG/3ML (0.083%)* [Ventolin 2.5 MG/3 ML NEB.ROVERTO*] 2.5 mg INH Q4H PRN #20 neb.roverto PRN Reason: Wheezing DOXYcycline CAP(*) [DOXYcycline 100MG CAP(*)] 100 mg PO BID #20 cap predniSONE [Prednisone 20 MG TAB] 40 mg PO DAILY #10 tablet Patient Education Materials: Asthma (ED), Acute Bronchitis (ED) Forms: *Work Release Referrals: Jessica Johnson MD [Primary Care Provider] - Additional Instructions: FOLLOW UP WITH YOUR DOCTOR. GO TO THE EMERGENCY DEPARTMENT IF WORSE OR ANY QUESTIONS OR CONCERNS. - Billing Disposition and Condition Condition: STABLE Disposition: Home
== END 2019-04-25 20:23 | disposition home or self-care (01) ==
LOC: UCEAST 19:09
DX: J45.901 Unspecified asthma with (acute) exacerbation (principal); F17.290 Nicotine dependence, other tobacco product, uncomplicated; Z88.5 Allergy status to narcotic agent; Z88.8 Allergy status to other drugs, medicaments and biological substances
CPT/HCPCS: 99212; G0463

== ENCOUNTER 2019-06-01 14:34 | Emergency (ER) | payer OTHER ==
--- OUTSIDE RECORDS SUMMARY | 2019-06-01 14:42 | XMS REPORT | Summary of Care ---
:1985 Author Organization [facility] Address [address] [place] [address] Care Team Providers Name Role Phone Jessica Johnson Primary Care Provider Reason for Referral Refer to Department Only (Routine) Status Reason Specialty Diagnoses / Referred By Referred To Procedures Contact Contact Pending OTORHINOLARYNGOLOGY Diagnoses Nasal septum perforation Rosenda Johnson MD [address] [place] [id number] Scheduling Instructions Please indicate side affected in the diagnosis. Reason for Visit Reason Comments Nose Problem States hole in nasal passage x weeks. Wants referral to ENT. Sinusitis States seen in urgent care for sinus / URI not any better per patient. Heartburn States omeprazole is not helping. Asthma Inhaler is not working asking for Adviar inhaler. Still smoking 1 ppd. Encounter Details Date Type Department Care Team Description 05/16/2019 Office Visit Avril Johnson COPD exacerbation (HCC) ( Primary Dx); Practice MD Jessica Nasal septum perforation [address] [place] [address] [place] [address] [phone] Allergies Active Allergy Reactions Severity Noted Date Comments Morphine Other 12/20/2017 Becomes emotional No Known Drug Allergy Other 07/14/2008 documented as of this encounter (statuses as of 05/16/2019) Medications Medication Sig Dispensed Refills Start Date End Date Status tizanidine TAKE ONE TABLET 90 Tab 0 04/23/2018 Active (ZANAFLEX) 4 MG BY MOUTH THREE Oral TIMES A DAY TabIndications: Chronic bilateral low back pain without sciatica OXYcodone Take 5 mg by 0 Active (OXY-IR,OXY-FAST) mouth EVERY 5 MG Oral Tab FOUR HOURS NEEDED for Pain. albuterol HFA Take 2 Puffs by 1 Inhaler 2 05/16/2018 Active (VENTOLIN) 108 (90 inhalation Base) MCG/ACT EVERY FOUR Inhalation Aero HOURS NEEDED SolnIndications: (wheezing). Wheezing Fluticasone Take 1 Puff by 0 Active Furoate-Vilanterol inhalation (BREO ELLIPTA) DAILY. 200-25 MCG/INH Inhalation AEROSOL POWDER, BREATH ACTIVATED fluticasone Bynum 2 Sprays 0 Active (FLONASE) 50 in nose TWICE MCG/ACT Nasal DAILY. Suspension Cetirizine HCl Take 10 mg by 0 Active (ZYRTEC PO) mouth DAILY AT 1400. Gabapentin Take by mouth 0 Active (NEURONTIN) 600 MG THREE TIMES Oral Tab DAILY. hydrOXYzine HCL Take 1 Tab by 180 Tab 1 07/27/2018 Active (ATARAX) 25 MG mouth THREE Oral TIMES DAILY TabIndications: NEEDED Anxiety (anxiety). levothyroxine Take 1 Tab by 30 Tab 3 11/08/2018 Active (SYNTHROID) 25 MCG mouth BEFORE Oral BREAKFAST. TabIndications: Hypothyroidism, unspecified type Rizatriptan Take 1 Tab by 12 Tab 2 11/15/2018 Active Benzoate 10 MG mouth EVERY TWO Oral Tab HOURS NEEDED (headache). No more than 2 doses over 24 hours loratadine Take 10 mg by 0 Active (CLARITIN,ALAVERT) mouth DAILY. 10 MG Oral Tab doxepin (SINEQUAN) TAKE ONE 90 Cap 1 12/12/2018 Active 100 MG Oral Cap CAPSULE BY MOUTH AT BEDTIME Erenumab-aooe Inject 140 mg 0 Active (AIMOVIG SC) beneath the skin EVERY THIRTY DAYS. doxepin (SINEQUAN) TAKE ONE 90 Cap 1 04/19/2019 Active 25 MG Oral CAPSULE BY CapIndications: MOUTH AT Migraine with aura BEDTIME and without status migrainosus, not intractable, Anxiety propranolol TAKE ONE TABLET 180 Tab 1 04/23/2019 Active (INDERAL) 20 MG BY MOUTH TWO Oral Tab TIMES A DAY Omeprazole delayed TAKE ONE 90 Cap 1 04/23/2019 Active rel cap 20 MG Oral CAPSULE BY CAPSULE DELAYED MOUTH EVERY DAY RELEASE fluticasone-salmet Take 1 INHL by 60 Each 1 05/16/2019 Active katelynn diskus inhalation (ADVAIR DISKUS) TWICE DAILY. 500-50 MCG/DOSE Inhalation AEROSOL POWDER, BREATH ACTIVATED azithromycin Take 2 pills on 6 Tab 0 05/16/2019 Active (ZITHROMAX Z-EMILY) the first day 250 MG Oral Tab and 1 pill each day for 4 days predniSONE Take 2 Tabs by 14 Tab 0 05/16/2019 Active (DELTASONE) 20 MG mouth DAILY. Oral Tab cephalexin Take 1 Cap by 21 Cap 0 01/18/2019 05/16/19 Discontinued (KEFLEX) 500 MG mouth THREE 20 (Therapy Oral Cap TIMES DAILY. Completed) hydrOXYzine HCL TAKE ONE TABLET 90 Tab 3 04/19/2019 05/16/19 Discontinued (ATARAX) 10 MG BY MOUTH EVERY 20 (Dose Oral 8 HOURS Adjustment) TabIndications: NEEDED FOR Anxiety ANXIETY documented as of this encounter (statuses as of 05/16/2019) Active Problems Problem Noted Date Tobacco abuse 01/19/2010 Overview: 12/17/09: started Chantix Dyspareunia 04/08/2009 Migraine, unspecified, without mention of intractable migraine without 2008 mention of status migrainosus Depressive disorder, not elsewhere classified 07/14/2008 Overview: Since 15 years old Bipolar 1 disorder Overview: psychosis and PTSD PTSD (post-traumatic stress disorder) Anxiety HPV in female Overview: with pap Allergic rhinitis Migraine with aura documented as of this encounter (statuses as of 05/16/2019) Resolved Problems Problem Noted Date Resolved Date Previous delivery affecting 02/17/2010 06/08/2010 Contact dermatitis and other eczema, due to unspecified 04/08/2009 11/18/2009 cause Other general counseling and advice for contraceptive 04/08/2009 11/18/2009 management Tobacco dependence 04/08/2009 11/18/2009 Supervision of normal first 09/02/2008 10/22/2009 Tobacco use complicating or childbirth 07/14/2008 06/08/2010 Overview: Smoked 1.5 pack/day 8 years Currently 1/2ppd to 1ppd. Other specified complication, antepartum(646.83) 07/01/2008 11/18/2009 Other specified screening(V28.89) 04/28/2008 11/18/2009 documented as of this encounter (statuses as of 05/16/2019) Immunizations Name Administration Dates Next Due Hepatitis B Vaccine 04/08/1998 Influenza (IM) Preservative Free 01/18/2019, 12/20/2017, 02/26/2010, 01/16/2009 documented as of this encounter Social History Tobacco Use Types Packs/Day Years Used Date Current Every Day Smoker Cigarettes 1 8 Smokeless Tobacco: Never Used Comments: Daily Alcohol Use Drinks/Week oz/Week Comments No rare Sex Assigned at Date Recorded Not on file Job Start Date Occupation Industry Not on file Not on file Not on file Travel History Travel Start Travel End No recent travel history available. documented as of this encounter Last Filed Vital Signs Vital Sign Reading Time Taken Comments Blood Pressure 128/68 05/16/2019 11:38 AM EST Pulse 85 05/16/2019 11:38 AM EST Temperature 36.6 05/16/2019 11:38 AM EST C (97.8 F) Respiratory Rate - - Oxygen Saturation 95% 05/16/2019 11:38 AM EST Inhaled Oxygen Concentration - - Weight 82.6 kg (182 lb) 05/16/2019 11:38 AM EST Height 154.9 cm (5' 1") 05/16/2019 11:38 AM EST Body Mass Index 34.39 05/16/2019 11:38 AM EST documented in this encounter Patient Instructions Patient InstructionsJessica Johnson MD - 05/16/2019 11:40 AM EST1. Stop Flonase 2. Schedule appointment with ENT 3. Stop Breo Ellipta. Start Advair 500/50 1 puff 2 times a day 4. Take Prednisone 40 mg (2 tablets of 20 mg) once a day 5. Follow up in 1 week and as needed documented in this encounter Progress Notes Jessica Johnson MD - 05/16/2019 11:40 AM EST Patient: Coby V Marino Date of Service: 05/16/2019 Subjective: Coby Pichardo is a 34-y.o. female who presents for Chief Complaint Patient presents with Nose Problem States hole in nasal passage x weeks. Wants referral to ENT. Sinusitis States seen in urgent care for sinus / URI not any better per patient. Heartburn States omeprazole is not helping. Asthma Inhaler is not working asking for Adviar inhaler. Still smoking 1 ppd. Patient complains of feeling sick for about 2 months with nasal congestion, sinus pressure, productive cough and increased wheezing Smokes about 1 pack a day Seen at the [facility] twice. Treated with Amoxicillin, Keflex, Prednisone. Sinus pressure improved. Recently noticed a hole in nasal septum On chronic Flonase treatment prescribed by her fish straightener Continues to have productive cough, frequent wheezing Thinks Advair worked better for her Past Medical History: Diagnosis Date Allergic rhinitis Anxiety Bipolar 1 disorder (HCC) psychosis and PTSD HPV in female with pap Migraine with aura Pancreatitis gall stones induced per patient PTSD (post-traumatic stress disorder) Outpatient Medications as of 05/16/2019 Medication Sig Dispense Refill albuterol HFA (VENTOLIN) 108 (90 Base) MCG/ACT Inhalation Aero Soln Take 2 Puffs by inhalation EVERY FOUR HOURS NEEDED (wheezing). 1 Inhaler 2 Cetirizine HCl (ZYRTEC PO) Take 10 mg by mouth DAILY AT 1400. doxepin (SINEQUAN) 100 MG Oral Cap TAKE ONE CAPSULE BY MOUTH AT BEDTIME 90 Cap 1 doxepin (SINEQUAN) 25 MG Oral Cap TAKE ONE CAPSULE BY MOUTH AT BEDTIME 90 Cap 1 Erenumab-aooe (AIMOVIG SC) Inject 140 mg beneath the skin EVERY THIRTY DAYS. fluticasone (FLONASE) 50 MCG/ACT Nasal Suspension Bynum 2 Sprays in nose TWICE DAILY. Fluticasone Furoate-Vilanterol (BREO ELLIPTA) 200-25 MCG/INH Inhalation AEROSOL POWDER, BREATH ACTIVATED Take 1 Puff by inhalation DAILY. Gabapentin (NEURONTIN) 600 MG Oral Tab Take by mouth THREE TIMES DAILY. hydrOXYzine HCL (ATARAX) 25 MG Oral Tab Take 1 Tab by mouth THREE TIMES DAILY NEEDED (anxiety). 180 Tab 1 levothyroxine (SYNTHROID) 25 MCG Oral Tab Take 1 Tab by mouth BEFORE BREAKFAST. 30 Tab 3 loratadine (CLARITIN,ALAVERT) 10 MG Oral Tab Take 10 mg by mouth DAILY. Omeprazole delayed rel cap 20 MG Oral CAPSULE DELAYED RELEASE TAKE ONE CAPSULE BY MOUTH EVERYDAY 90 Cap 1 OXYcodone (OXY-IR,OXY-FAST) 5 MG Oral Tab Take 5 mg by mouth EVERY FOUR HOURS NEEDED for Pain. propranolol (INDERAL) 20 MG Oral Tab TAKE ONE TABLET BY MOUTH TWO TIMES A DAY 180 Tab 1 Rizatriptan Benzoate 10 MG Oral Tab Take 1 Tab by mouth EVERY TWO HOURS NEEDED (headache).No more than 2 doses over 24 hours 12 Tab 2 tizanidine (ZANAFLEX) 4 MG Oral Tab TAKE ONE TABLET BY MOUTH THREE TIMES A DAY 90 Tab 0 No current facility-administered medications on file as of 05/16/2019. Allergies Allergen Reactions Morphine Other Becomes emotional No Known Drug Allergy Other Review of Systems: All remaining review of systems was negative. Objective: BP 128/68 Pulse 85 Temp 97.8 F (36.6 C) Ht 5' 1" (1.549 m) Wt 182 lb (82.6 kg) SpO2 95% BMI 34.39 kg/m2 GENERAL: alert, fatigued NOSE: mild congestion, not able to visualize the septum due to large blood clot THROAT: mild oropharyngeal erythema NECK: supple, symmetrical, trachea midline and no adenopathy LUNGS: Bilaterally good air entry, bilateral rhonchi HEART: regular rate and rhythm, S1, S2 normal, no murmur, click, rub or gallop ICD-9-CM ICD-10-CM 1. COPD exacerbation (HCC) 491.21 J44.1 2. Nasal septum perforation 478.19 J34.89 REFER TO OTOLARYNGOLOGY (ENT) Patient Instructions 1. Stop Flonase 2. Schedule appointment with ENT 3. Stop Breo Ellipta. Start Advair 500/50 1 puff 2 times a day 4. Take Prednisone 40 mg (2 tablets of 20 mg) once a day 5. Follow up in 1 week and as needed Author: Jessica Johnson MD documented in this encounter Plan of Treatment Date Type Specialty Care Team Description 05/23/2019 Office Visit [facility] Jessica Johnson MD [address] [place] [address] [phone] Name Type Priority Associated Diagnoses Order Schedule REFER TO OTOLARYNGOLOGY Referral Routine Nasal septum Expected: (ENT) perforation 05/16/2019, Expires: 05/16/2020 Health Maintenance Due Date Last Done Comments PNEUMOCOCCAL 0-64 YRS (1 of 1993 1 - PPSV23) DTaP/Tdap/Td Vaccines (1 - 1998 Tdap) DEPRESSION SCREENING 05/16/2020 05/16/2019, 05/16/2018 PAP SMEAR 01/19/2021 01/19/2018, 12/16/2009, 04/25/2008, Additional history exists HIV SCREENING Completed 11/18/2009, 03/26/2008, 01/14/2004 INFLUENZA VACCINE Completed 01/18/2019, 12/20/2017, 02/26/2010, Additional history exists HEPATITIS A IMMUNIZATION Aged Out No longer eligible SERIES based on patient's age to complete this topic HPV IMMUNIZATION SERIES Aged Out No longer eligible based on patient's age to complete this topic MENINGOCOCCAL VACCINE IMM Aged Out No longer eligible based on patient's age to complete this topic documented as of this encounter Goals Goal Patient Goal Associated Recent Patient-Stated? Author Type Problems Progress Smoking COPD No Charlee Johnson MD Note: This is an individualized treatment (COPD) goal for Coby Pichardo: Quit smoking immediately! Your provider has information and resources that may help you to quit. Depression screen (PHQ-9) Depression 24 (05/16/2018 3:03 PM No Shay Olivares DO total score < 5 EST) Note: This is an individualized treatment (depression) goal for Coby Stephanie Marino: Displayed above is your goal for a depression screening (PHQ-9) score that would indicate good control of your depression. Keep a regular sleep schedule Lifestyle No Shay Olivares DO Note: This is an individualized lifestyle goal for Coby Pichardo: Please maintain a regular sleep schedule. This may help with some symptoms of depression. Keep immunizations current Lifestyle No Jessica Johnson MD Note: This is an individualized lifestyle goal for Coby Pichardo: Please be sure to keep up-to-date on recommended immunizations. For example, this would include a yearly influenza vaccine. Immunization status can be seen by looking at the Health Maintenance sections of your [facility], Plan of Care, and any After Visit Summaries. Take all prescribed medications as directed Self-management No Shay Olivares, DO Note: This is an individualized self-management goal for Coby Pichardo: Please take all prescribed medications as directed. 1. Do not skip doses. If you cannot afford your medications, talk with your doctor. 2. Use a pill reminder system such as a pill box if needed. Your pharmacist can help you with this. 3. Contact your Pharmacy 5 days before your medication runs out. If you cannot take your medications for any reasons, talk with your doctor. 4. Please bring all of your medication bottles and inhalers (or a list of all your medications/inhalers) with you to every visit. Potential barriers to meeting all of your care plan goals will continue to be addressed on an ongoing basis. documented as of this encounter Results Not on filedocumented in this encounter Visit Diagnoses Diagnosis Nasal septum perforation Other diseases of nasal cavity and sinuses COPD exacerbation (HCC) Obstructive chronic bronchitis with exacerbation documented in this encounter Guarantor Name Account Type Relation to Date of Phone Billing Patient Address Coby Pichardo Personal/Family 1985 [phone] [address] [phone] [facility] [place] ([place] [address] documented as of this encounter
--- OUTSIDE RECORDS SUMMARY | 2019-06-01 14:42 | XMS REPORT | Continuity of Care Document ---
:1985 External Reference #:[id number] Author Name Inderjit Bush DO, MPH Address [address] [place] [address], [address] [place] [address] Care Team Providers Name Role Phone Shay Olivares J, DO - Internal Medicine Care Team Information Deputy Coroner Investigator Jessica Johnson M.D. - Internal Care Team Information Deputy Coroner Investigator [phone] Medicine Problems Active Problems Provider Date Myalgia, [...] Use Denies Drug Use Smoking Status Reviewed: 05/04/19 Patient is a current smoker, smokes every [...] Available Vital Signs Date Vital Result Comment 05/04/2019 9:53am BP Systolic 124 mmHg BP Diastolic 78 mmHg Heart Rate 72 /min Respiratory Rate 20 /min Height 60 inches 5'0" Weight 186.00 lb Pain Level 7 Pain at this time. Pain Level With Medicine 6 on average with meds Pain Level Without Medicine 9 without meds Pain Level After Procedure 3 BP Systolic Recheck 130 mmHg Pulse: 80 BP Diastolic Recheck 84 mmHg Pulse: 80 BMI (Body Mass Index) 36.3 kg/m2 04/22/2019 9:44am BP Systolic 126 mmHg BP Diastolic 72 mmHg Heart Rate 74 /min Respiratory Rate 20 /min Height 60 inches 5'0" Weight 184.00 lb Pain Level 5 Pain at this time. Pain Level With Medicine 4 on average with meds Pain Level Without Medicine 9 without meds BMI (Body Mass Index) 35.9 kg/m2 Results Description No Information Available Procedures Date Code Description Status 04/22/2019 64613 Therapeutic, Prophylactic Or Diagnostic Injection Subq/Im Completed 03/20/2019 84020 Therapeutic, Prophylactic Or Diagnostic Injection Subq/Im Completed 03/02/2019 41558 Omt 3-4 Body Regions Completed 03/02/2019 Arthrocentesis/Aspiration/Inj Of Major Joint Or Bursa W/ Completed Ultra 03/02/2019 Arthrocentesis/Aspiration/Inj Of Major Joint Or Bursa W/ Completed Ultra 03/02/201919181 Injection, Single Or Mutiple Trigger Points One Or Two Completed Muscles 03/02/2019 23137 Inject Tendon/Ligament Completed 03/02/201965899 Inject Tendon/Ligament Completed 02/21/2019 89956 Therapeutic, Prophylactic Or Diagnostic Injection Subq/Im Completed 01/01/2019 45133 Inject Tendon/Ligament Completed 01/01/2019 03742 Inject Tendon/Ligament Completed 01/01/201930802 Inject Tendon/Ligament Completed 01/01/2019 21996 Inject Tendon/Ligament Completed 01/01/2019 17094 Injection, Tendon Origin/Insertion Completed 01/01/2019 95406 Injection, Tendon Origin/Insertion Completed 01/01/201952514 Injection, Single Or Mutiple Trigger Points One Or Two Completed Muscles 01/01/2019 79117 Injection For Nerve Block, Other Peripheral Nerve Or Completed Branch 01/01/2019 06774 Omt 5-6 Body Regions Completed 12/20/2018 85861 Therapeutic, Prophylactic Or Diagnostic Injection Subq/Im Completed 11/21/2018 11756 Therapeutic, Prophylactic Or Diagnostic Injection Subq/Im Completed Medical Devices Description No Information Available Encounters Type Date Location Provider Dx Diagnosis Office Visit 04/22/2019 Main Office as Of Inderjit Bush DO, G89.21 Chronic pain due 9:45a 05/25/13 MPH to trauma M54.2 Cervicalgia M79.604 Pain in right leg M25.551 Pain in right hip M25.552 Pain in left hip M46.1 Sacroiliitis, not elsewhere classified R53.83 Other fatigue Z79.891 oil heaterman (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 Office Visit 03/20/2019 10:15a Main Office as Inderjit Bush G89.21 Chronic pain due Of 05/25/13 DO, MPH to trauma M46.1 Sacroiliitis, not elsewhere classified M25.552 Pain in left hip M25.551 Pain in right hip M54.2 Cervicalgia M79.604 Pain in right leg R53.83 Other fatigue Z79.891 oil heaterman (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 Office Visit [...] back pain M79.18 Myalgia, other site Z79.891 oil heaterman (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 R53.83 Other fatigue Office Visit 01/21/2019 10:00a Main Office as Inderjit Bush G89.21 Chronic pain due Of 2/05/07 DO, MPH to trauma M54.2 Cervicalgia M54.6 Pain in thoracic spine M54.5 Low back pain M54.17 Radiculopathy, lumbosacral region M79.18 Myalgia, other site Z79.891 oil heaterman (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 R53.83 Other fatigue Office Visit 01/01/2019 10:15a Main Office as Inderjit Bush G89.21 Chronic pain due Of 2 DO, MPH to trauma M54.2 Cervicalgia M99.01 Segmental and somatic dysfunction of cervical region M54.6 Pain in thoracic spine M99.02 Segmental and somatic dysfunction of thoracic region M54.5 Low back pain M99.03 Segmental and somatic dysfunction of lumbar region M54.17 Radiculopathy, lumbosacral region M65.88 Other synovitis and tenosynovitis, other site M79.18 Myalgia, other site M53.3 Sacrococcygeal disorders, not elsewhere classified Z79.891 assisted (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 M99.04 Segmental [...] pain M46.1 Sacroiliitis, not elsewhere classified Z79.891 assisted (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 R53.83 Other fatigue Office Visit 11/21/2018 9:45a Main Office as Inderjit Bush G89.21 Chronic pain due Of 05/25/13 , MPH to trauma M46.1 Sacroiliitis, not elsewhere classified M54.17 Radiculopathy, lumbosacral region Z79.891 oil heaterman (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 R53.83 Other fatigue Assessments Date Code Description Provider 05/04/2019 G89.21 Chronic pain due to trauma Inderjit Bush DO, MPH 05/04/2019 M54.5 Low back pain Inderjit Bush DO, MPH 05/04/2019 M54.16 Radiculopathy, lumbar region Inderjit Bush DO, MPH 05/04/2019 M65.88 Other synovitis and tenosynovitis, other Inderjit Bush DO , MPH site 05/04/2019 M46.06 Spinal enthesopathy, lumbar region Inderjit Bush DO, MPH 05/04/2019 M79.18 Myalgia, other site Inderjit Bush DO, MPH 04/22/2019 G89.21 Chronic pain due to trauma Bush, Inderjit, DO, MPH 04/22/2019 M54.2 Cervicalgia Bush, Inderjit, DO, MPH 04/22/2019 M79.604 Pain in right leg Bush, Inderjit, DO, MPH 04/22/2019 M25.551 Pain in right hip Bush, Inderjit, DO, MPH 04/22/2019 M25.552 Pain in left hip Bush, Inderjit, DO, MPH 04/22/2019 M46.1 Sacroiliitis, not elsewhere classified Bush, Inderjit, DO, MPH 04/22/2019 R53.83 Other fatigue Bush, Inderjit, DO, MPH 04/22/2019 Z79.891 assisted (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 Bush, Inderjit [...] fatigue Bush, Inderjit, DO, MPH 03/20/2019 Z79.891 assisted (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 Bush, Inderjit [...] site Bush, Inderjit, DO, MPH 02/21/2019 Z79.891 assisted (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 Bush, Inderjit [...] site Bush, Inderjit, DO, MPH 01/21/2019 Z79.891 oil heaterman (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 Bush, Inderjit [...] M99.03 Segmental and somatic dysfunction of lumbar Buhs, Inderjit, DO, MPH region 01/01/2019 M54.17 Radiculopathy, lumbosacral region Bush, Inderjit, DO, MPH 01/01/2019 M65.88 Other synovitis and tenosynovitis, other Bush, Inderjit, DO , MPH site 01/01/2019 M79.18 Myalgia, other site Bush, Inderjit, DO, MPH 01/01/2019 M53.3 Sacrococcygeal disorders, not elsewhere Bush, Inderjit, DO, MPH classified 01/01/2019 Z79.891 assisted (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 Bush, Inderjit [...] MPH 12/20/2018 M46.1 Sacroiliitis, not elsewhere classified Inderjit Bush DO, MPH 12/20/2018 Z79.891 oil heaterman (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 Inderjit Bush DO MPH 12/20/2018 R53.83 Other fatigue Inderjit Bush DO MPH 11/21/2018 G89.21 Chronic pain due to trauma Inderjit Bush DO MPH 11/21/2018 M46.1 Sacroiliitis, not elsewhere classified Inderjit Bush DO MPH 11/21/2018 M54.17 Radiculopathy, lumbosacral region Inderjit Bush DO, MPH 11/21/2018 Z79.891 oil heaterman (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 Inderjit Bush DO MPH 11/21/2018 R53.83 Other fatigue Inderjit Bush DO, MPH Plan of Treatment Future Appointment(s):05/20/2019 9:30 am - Inderjit Bush DO MPH at Main Office as Of 05/25/1400 - Inderjit Bush DO, MPHG89.21 Chronic pain due to traumaComments:Chronic. Symptoms and complaints discussed and reviewed today. No significant changes in physical findings. Continue current medical pain management.M54.5 Low back painComments:Chronic. Symptoms and complaints discussed and reviewed today.No changes in physical findings. Patient is stable and comfortable when current medical therapy is rendered.M54.16 Radiculopathy, lumbar regionComments:Chronic. Symptoms and complaints discussed and reviewed today. Notable physical findings reviewed; pain levels and this patient's complaint of less functionality warrant intervention; patient is stableon current medical therapy. Injection therapy performed today - nerve block to right and left superior cluneal nerves. Informed consent given/refusal reviewed. See procedure sheet. IInjection therapylowers this patient's pain, improves functionality and mitigates the need for increased medication.M65.88 Other synovitis and tenosynovitis, other siteComments:Chronic. Symptoms and complaints discussed and reviewed today. Physical findings reviewed and warrant intervention. Continue current medical pain management. Injection therapy today - tendon sheath. Informed consent given/refusal reviewed. See procedure sheet.M46.06 Spinal enthesopathy, lumbar regionComments: Chronic. Symptoms and complaints discussed and reviewed today. Physical findings reviewed and warrant intervention. Patient is stable and comfortable with current medical therapy. Injection therapytoday.Tendon I/O injections performed. See procedure sheet.M79.18 Myalgia, other siteComments:Injection therapy [...] while maintaining satisfactory side effect profile andminimizing shelter end-organ damage. Importance of regular nutrition throughout the day discussed.Activity as toleratedContinue with PCP Functional Status Description No Information Available Mental Status Description No Information Available Referrals Refer to Dr Reason for Referral Status Appt Date Inderjit Bush D.O. MPH Created [address] [place] [address] [address] [place] [address] [phone] Inderjit Bush D.O. MPH Created [address] [place] [address] [address] [place] [address] [phone]
--- OUTSIDE RECORDS SUMMARY | 2019-06-01 14:42 | XMS REPORT | Continuity of Care Document ---
:1985 External Reference #:[id number] Author Name Inderjit Bush DO, MPH Address [address] [place] [address], [address] [place] [address] Care Team Providers Name Role Phone Shay Olivares J, DO - Internal Medicine Care Team Information Warehouse Person Jessica Johnson M.D. - Internal Care Team Information Warehouse Person [phone] Medicine Problems Active Problems Provider Date Myalgia, [...] Use Denies Drug Use Smoking Status Reviewed: 05/20/19 Patient is a current smoker, smokes every day Allergies, Adverse Reactions, Alerts Active Allergies Reaction Severity Comments Date Morphine 03/22/2018 Medications Active Medications SIG Qnty Indications Ordering Date Provider Oxycodone HCL si by mouth 120tabs Inderjit Bush, 08/22/2018 5mg Tablets every 4 [...] Available Vital Signs Date Vital Result Comment 05/20/2019 9:45am BP Systolic 130 mmHg BP Diastolic 78 mmHg Heart Rate 84 /min Respiratory Rate 20 /min Height 60 inches 5'0" Weight 188.00 lb Pain Level 7 Pain at this time. Pain Level With Medicine 6 on average with meds Pain Level Without Medicine 9 without meds BMI (Body Mass Index) 36.7 kg/m2 05/04/2019 9:53am BP Systolic 124 mmHg BP [...] 80 BMI (Body Mass Index) 36.3 kg/m2 Results Description No Information Available Procedures Date Code Description Status 05/04/2019 11651 Injection For Nerve Block, Other Peripheral Nerve Or Completed Branch 05/04/201930218 Injection, Single Or Mutiple Trigger Points One Or Two Completed Muscles 05/04/201927442 Injection, Tendon Origin/Insertion Completed 05/04/201975024 Injection, Tendon Origin/Insertion Completed 05/04/201901007 Inject Tendon/Ligament Completed 05/04/201926875 Inject Tendon/Ligament Completed 05/04/201969164 Inject Tendon/Ligament Completed 05/04/201935445 Inject Tendon/Ligament Completed 04/22/2019 05704 Therapeutic, Prophylactic Or Diagnostic Injection Subq/Im Completed 03/20/2019 67277 Therapeutic, Prophylactic Or Diagnostic Injection Subq/Im Completed 03/02/201954396 Inject Tendon/Ligament Completed 03/02/201913864 Inject Tendon/Ligament Completed 03/02/201972197 Injection, Single Or Mutiple Trigger Points One Or Two Completed Muscles 03/02/201941044 Arthrocentesis/Aspiration/Inj Of Major Joint Or Bursa W/ Completed Ultra 03/02/2019 Arthrocentesis/Aspiration/Inj Of Major Joint Or Bursa W/ Completed Ultra 03/02/2019 17914 Omt 3-4 Body Regions Completed 02/21/2019 61710 Therapeutic, Prophylactic Or Diagnostic Injection Subq/Im Completed 01/01/2019 13798 Omt 5-6 Body Regions Completed 01/01/2019 20765 Injection For Nerve Block, Other Peripheral Nerve Or Completed Branch 01/01/201943976 Injection, Single Or Mutiple Trigger Points One Or Two Completed Muscles 01/01/201910727 Injection, Tendon Origin/Insertion Completed 01/01/201906958 Injection, Tendon Origin/Insertion Completed 01/01/201956699 Inject Tendon/Ligament Completed 01/01/201999740 Inject Tendon/Ligament Completed 01/01/201914496 Inject Tendon/Ligament Completed 01/01/201909081 Inject Tendon/Ligament Completed 12/20/2018 66138 Therapeutic, Prophylactic Or Diagnostic Injection Subq/Im Completed 11/21/2018 82690 Therapeutic, Prophylactic Or Diagnostic Injection Subq/Im Completed Medical Devices Description No Information Available Encounters Type Date Location Provider Dx Diagnosis Office Visit 05/04/2019 Main Office as Of Inderjit Bush DO G89.21 Chronic pain due 9:30a 05/25/13 MPH to trauma M54.5 Low back pain M54.16 Radiculopathy, lumbar region M65.88 Other synovitis and tenosynovitis, other site M46.06 Spinal enthesopathy, lumbar region M79.18 Myalgia, other site Office Visit 04/22/2019 9:45a Main Office as Inderjit Bush G89.21 Chronic pain due Of 05/25/13 DO, MPH to trauma M54.2 Cervicalgia M79.604 Pain in right leg M25.551 Pain in right hip M25.552 Pain in left hip M46.1 Sacroiliitis, not elsewhere classified R53.83 Other fatigue 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6 Pain in thoracic spine M54.5 Low back pain M54.17 Radiculopathy, lumbosacral region M79.18 Myalgia, other site Z79.891 nursing home (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 R53.83 Other fatigue Office Visit 01/01/2019 10:15a Main Office as Inderjit Bush, G89.21 [...] M53.3 Sacrococcygeal disorders, not elsewhere classified Z79.891 nursing home (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 M99.04 Segmental [...] pain M46.1 Sacroiliitis, not elsewhere classified Z79.891 nursing home (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 R53.83 Other fatigue Office Visit 11/21/2018 9:45a Main Office as Inderjit Bush G89.21 Chronic pain due Of 05/25/13 DO, MPH to trauma M46.1 Sacroiliitis, not elsewhere classified M54.17 Radiculopathy, lumbosacral region 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 R53.83 Other fatigue Assessments Date Code Description Provider 05/20/2019 G89.21 Chronic pain due to trauma Inderjit Bush DO, MPH 05/20/2019 M54.2 Cervicalgia Inderjit Bush DO, MPH 05/20/2019 M99.01 Segmental and somatic dysfunction of Inderjit Bush DO, MPH cervical region 05/20/2019 M54.6 Pain in thoracic spine BushInderjit mendoza DO, MPH 05/20/2019 M99.02 Segmental and somatic dysfunction of Inderjit Bush DO, MPH thoracic region 05/20/2019 M54.5 Low back pain Inderjit Bush DO, MPH 05/20/2019 M99.03 Segmental and somatic dysfunction of lumbar BushInderjit mendoza DO, MPH region 05/20/2019 M54.81 Occipital neuralgia Inderjit Bush DO, MPH 05/20/2019 M65.88 Other synovitis and tenosynovitis, other Bush, Inderjit, DO , MPH site 05/20/2019 M79.12 Myalgia of auxiliary muscles, head and neck BushInderjit mendoza DO, MPH 05/20/2019 Z79.891 nursing home (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 BushInderjit mendoza DO, MPH 05/20/2019 Z13.31 Encounter for screening for depression Inderjit Bush DO, MPH 05/04/2019 G89.21 Chronic pain due to trauma Inderjit Bush DO, MPH 05/04/2019 M54.5 Low back pain BushInderjit mendoza DO, MPH 05/04/2019 M54.16 Radiculopathy, lumbar region Inderjit Bush, DO, MPH 05/04/2019 M65.88 Other synovitis and tenosynovitis, other Bush, Inderjit, DO , MPH site 05/04/2019 M46.06 Spinal enthesopathy, lumbar region BushInderjit mendoza DO, MPH 05/04/2019 M79.18 Myalgia, other site Bush, Inderjit, DO, MPH 04/22/2019 G89.21 Chronic pain due [...] fatigue Bush, Inderjit, DO, MPH 04/22/2019 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 Bush, Inderjit [...] fatigue Bush, Inderjit, DO, MPH 03/20/2019 Z79.891 nursing home (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 Bush, Inderjit [...] site Bush, Inderjit, DO, MPH 02/21/2019 Z79.891 nursing home (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 Bush, Inderjit [...] site Bush, Inderjit, DO, MPH 01/21/2019 Z79.891 nursing home (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 Bush, Inderjit [...] Bush, Inderjit, DO, MPH classified 01/01/2019 Z79.891 nursing home (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 Bush, Inderjit [...] not elsewhere classified Inderjit Bush DO MPH 12/20/2018 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 Inderjit Bush DO MPH 12/20/2018 R53.83 Other fatigue Inderjit Bush DO MPH 11/21/2018 G89.21 Chronic pain due to trauma Inderjit Bush DO MPH 11/21/2018 M46.1 Sacroiliitis, not elsewhere classified Inderjit Bush DO MPH 11/21/2018 M54.17 Radiculopathy, lumbosacral region Inderjit Bush DO MPH 11/21/2018 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 Symptoms and complaints discussed and reviewed today. No significant changes in physical findings. Continue current medical pain management.M54.2 CervicalgiaComments:Chronic. Symptoms and complaints discussed and reviewed today. No significant changes in physical findings. Continue current medical pain management.M99.01 Segmental and somatic dysfunction of cervical regionComments:Chronic. Symptoms and complaints discussed and reviewed today. Somatic dysfunctions noted warrantingOMT. Continue current medical pain management and OMT. [id number]. OMT performed.M54.6 Pain in thoracic spineComments: Chronic.Symptoms and complaints discussed and reviewed today. No significant changes in physical findings. Continue current medical pain management.M99.02 Segmental and somatic dysfunction of thoracic regionComments:Chronic. Symptoms and complaints discussed and reviewed today. Notable somatic dysfunctions noted warranting OMT. Continue current medical pain management and OMT. [id number]. OMT performed after evaluation. HVLA.M54.5 Low back painComments:Chronic. Symptoms and complaints discussed and reviewed today.No changes in physical findings. Patient is stable and comfortable when current medical therapy is rendered.M99.03 Segmental and somatic dysfunction of lumbar regionComments: Chronic. Symptoms and complaints discussed and reviewed today. Lumbar somatic dysfunctions noted warranting OMT. Continue current medical pain management and OMT. [id number]. OMT performed after evaluation. HVLA.M54.81 Occipital neuralgiaComments:Chronic. Symptoms and complaints discussed and reviewed today. Continue current medical pain management. Physical findings reviewed and warrant intervention. Injection therapy performed today. See procedure sheet.M65.88 Other synovitis and tenosynovitis, other siteComments:Chronic. Symptoms and complaints discussed and reviewed today. Physical findings reviewed and warrant intervention. Continue current medical pain management. Injection therapy today - tendon sheath. Informed consent given/refusal reviewed. See procedure sheet.M79.12 Myalgia of auxiliary muscles, head and neckComments:Symptoms and complaints discussed and reviewed today. Physical findings reviewed and warrant intervention. Injection therapy today - Trigger Point injections. Informed consent given/refusal reviewed. See procedure sheet.Z79.891 nursing home (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New Labs:Urine Drug Screen, Ordered: 05/20/19Comments:Urine drug screen sample taken. Rapid Point of [...] controlled substances and is considered standard of care.Z13.31 Encounter for screening for depressionComments:PHQ-9 Depression Screen administered today, results were Positive at this time. Followed by PCP. Will follow as pertains to their pain. Patient seems to be stable today. Reassurance and counseling. Patient seems to be stable today.AllComments:Continue current medical pain management; injection therapy, osteopathic [...] while maintaining satisfactory side effect profile andminimizing snf end-organ damage. Importance of regular nutrition throughout the day discussed.Activity as toleratedContinue with PCP Functional Status Description No Information Available Mental Status Description No Information Available Referrals Refer to Dr Reason for Referral Status Appt Date Inderjit Bush D.O. MPH Created [address] [place] [address] [place] [address] [phone] Inderjit Bush D.O. MPH Created [address] [place] [address] [place] [address] [phone] Inderjit Bush D.O. MPH Created [address] [place] [address] [address] [place] [address] [phone]
[2019-06-01 15:24] VITALS: BP 118/77
[2019-06-01] MEDS ORDERED: Lidocaine 2% VISCOUS* 15 ML UDC PO ONE (15:48)
[2019-06-01] MEDS ORDERED: Al Hydrox/Mg Hydrox/Simet LIQ* 30 ML UDC PO ONE (15:48)
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
== END 2019-06-01 16:56 | disposition home or self-care (01) ==
LOC: UCEAST 14:34
DX: F43.12 Post-traumatic stress disorder, chronic (principal); K21.9 Gastro-esophageal reflux disease without esophagitis; J02.9 Acute pharyngitis, unspecified; Z88.5 Allergy status to narcotic agent; Z88.8 Allergy status to other drugs, medicaments and biological substances; F17.210 Nicotine dependence, cigarettes, uncomplicated
CPT/HCPCS: 87651; 99212; A9270-GY; G0463